=== PATIENT | male | born 1970 | race Caucasian/White ===

== ENCOUNTER 2020-03-08 20:52 | Observation (INO) ==
[2020-03-08 22:01] LABS: Basophils # (auto) 0.03 K/uL (0-0.2); Basophils % (auto) 0.3 %; Eosinophils # (auto) 0.26 K/uL (0-0.5); Eosinophils % (auto) 2.3 %; Hematocrit (blood only) 43.9 % (42-52); Hemoglobin 14.7 g/dL (14.0-18.0); Immature Granulocytes # (auto) 0.02 K/uL (0.00-0.02); Immature Granulocytes % (auto) 0.2 %; Lymphocytes # (auto) 4.05 K/uL (1.2-3.4); Lymphocytes % (auto) 36.4 %; Mean Corpuscular Hemoglobin 30.4 pg (25-34); Mean Corpuscular Hgb Conc 33.5 g/dL (32-36); Mean Corpuscular Volume 90.7 fL (80-100); Mean Platelet Volume 9.5 fL (7.4-10.4); Monocytes # (auto) 0.57 K/uL (0.11-0.59); Monocytes % (auto) 5.1 %; Neutrophils % (auto) 55.7 %; Platelet Count 243 K/uL (130-400); RDW Coefficient of Variation 12.8 % (11.5-14.5); RDW Standard Deviation 42.5 fL (36.4-46.3); Red Blood Count 4.84 M/uL (4.7-6.1); White Blood Count 11.13 K/uL (4.8-10.8)
[2020-03-08 22:19] LABS: Alanine Aminotransferase 28 U/L (12-78); Albumin Level 4.1 gm/dl (3.4-5.0); Aspartate Aminotransferase 21 U/L (15-37); BUN Creatinine Ratio 9.2 (10-20); Blood Urea Nitrogen 8 mg/dl (7-18); Calcium 9.2 mg/dl (8.5-10.1); Carbon Dioxide 31 mmol/L (21-32); Chloride 106 mmol/L (98-107); Creatinine Clr Calc Pharmacy 100.1 ml/min; Est GFR (African American) 115.8; Est GFR (Non-African American) 99.9; Glucose 79 mg/dl (70-99); Magnesium 2.1 mg/dl (1.8-2.4); Potassium 3.7 mmol/L (3.5-5.1); Sodium 141 mmol/L (136-145)
[2020-03-08 22:24] LABS: Albumin Globulin Ratio 1.1 (0.9-2); Alkaline Phosphatase 78 U/L (45-117); Bilirubin,Total 0.5 mg/dl (0.2-1); Globulin 3.6 gm/dl (2.5-4.0); NT Pro B Type Natriuretic Pept 57 pg/ml (0-450); Phosphorus 2.7 mg/dl (2.5-4.9); Total Protein 7.7 gm/dl (6.4-8.2); Troponin I < 0.015 ng/ml (0-0.045)
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
[2020-03-09] MEDS ORDERED: ONDANSETRON INJ 2 MG/ML 2 ML VIAL IV PRN (03:26)
[2020-03-09] MEDS ORDERED: ASPIRIN CHEW 324 MG PO STA (03:26)
[2020-03-09] MEDS ORDERED: NITROGLYCERIN SL 0.4 MG/TAB TAB SL PRN (03:26)
[2020-03-09] MEDS ORDERED: MoRPHine SULFATE 2 MG/ML CARP IV PRN (03:26)
[2020-03-09] MEDS ORDERED: ALUMINUM/MAGNESIUM SUSP 30 ML UDC PO PRN (03:26)
[2020-03-09] MEDS ORDERED: ACETAMINOPHEN 325 MG TAB PO PRN (03:26)
--- NOTE | 2020-03-09 03:32 | Billing Data ---
Date of Service March 09, 2020 Coding Level of Care Code 89970 OBS Care - Level 2
[2020-03-09 04:38] LABS: Basophils # (auto) 0.05 K/uL (0-0.2); Basophils % (auto) 0.5 %; Eosinophils # (auto) 0.39 K/uL (0-0.5); Hematocrit (blood only) 41.5 % (42-52); Hemoglobin 13.9 g/dL (14.0-18.0); Immature Granulocytes # (auto) 0.01 K/uL (0.00-0.02); Immature Granulocytes % (auto) 0.1 %; Lymphocytes # (auto) 4.23 K/uL (1.2-3.4); Lymphocytes % (auto) 43.4 %; Mean Corpuscular Hemoglobin 30.7 pg (25-34); Mean Corpuscular Hgb Conc 33.5 g/dL (32-36); Mean Corpuscular Volume 91.6 fL (80-100); Mean Platelet Volume 9.4 fL (7.4-10.4); Monocytes # (auto) 0.56 K/uL (0.11-0.59); Monocytes % (auto) 5.7 %; Neutrophils % (auto) 46.3 %; Platelet Count 229 K/uL (130-400); RDW Coefficient of Variation 12.9 % (11.5-14.5); RDW Standard Deviation 43.2 fL (36.4-46.3); Red Blood Count 4.53 M/uL (4.7-6.1); White Blood Count 9.74 K/uL (4.8-10.8)
[2020-03-09 05:02] LABS: BUN Creatinine Ratio 11.9 (10-20); Blood Urea Nitrogen 11 mg/dl (7-18); Calcium 8.6 mg/dl (8.5-10.1); Carbon Dioxide 30 mmol/L (21-32); Chloride 110 mmol/L (98-107); Creatinine Clr Calc Pharmacy 103.6 ml/min; Est GFR (African American) 116.4; Est GFR (Non-African American) 100.4; Glucose 87 mg/dl (70-99); Potassium 3.3 mmol/L (3.5-5.1); Sodium 144 mmol/L (136-145)
[2020-03-09 05:08] LABS: Chol HDL Ratio 5; Cholesterol 162 mg/dl (0-200); HDL Cholesterol 35 mg/dl; LDL Cholesterol Calculated 100 mg/dl; Triglycerides 135 mg/dl (0-150); Troponin I < 0.015 ng/ml (0-0.045); VLDL Cholesterol 27 mg/dl
[2020-03-09 06:05] LABS: Estimated Average Glucose 117 mg/dl; Hemoglobin A1C 5.7 % (4.5-5.6)
--- NOTE | 2020-03-09 07:23 | XRay Report ---
XR chest 1V portable CLINICAL HISTORY: Shortness of breath. Chest pain. COMPARISON STUDY: Chest CT March 05, 2013. FINDINGS: Chronic deformity of both shoulders and clavicles is again noted. There is no pneumothorax or pleural effusion. Mild cardiomegaly is noted without evidence for pulmonary edema. Minimal bibasil ar opacities are present. IMPRESSION: Minimal bibasilar opacities which favor atelectasis. An infectious process could appear similar. ACT 112: Negative or not required by law. Electronically signed by: Ludwin Omer M.D. 03/09/2020 7:21 AM
--- NOTE | 2020-03-09 08:38 | XCELERA ---
[id number]}___[id number]
[2020-03-09] MEDS ORDERED: POTASSIUM CHLORIDE 20 MEQ TABCR PO SCH (09:00)
[2020-03-09] MEDS ORDERED: BUPRENORPHINE/NALOXONE 8/2 MG TAB SL SCH (09:00)
[2020-03-09] MEDS ORDERED: NICOTINE 14 MG/24 HR PATCH TD SCH (09:00)
[2020-03-09] MEDS ORDERED: ENOXAPARIN INJ 40 MG/0.4 ML SYR SQ SCH (09:00)
[2020-03-09 12:23] LABS: Amphetamines+Metham, Urine Pos (Neg); Barbiturates, Urine Neg (Neg); Benzodiazepine, Urine Neg (Neg); Cocaine, Urine Neg (Neg); MDMA (Ecstacy), Urine Pos (Neg); Methadone, Urine Neg (Neg); Opiate, Urine Neg (Neg); Phencyclidine, Urine Neg (Neg)
--- NOTE | 2020-03-09 14:41 | XCELERA ---
[id number] \\[id number]_[id number]}___[id number]
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
--- NOTE | 2020-03-10 12:26 | Electrocardiogram Report ---
Test Reason : Blood Pressure : / mmHG Vent. Rate : 053 BPM Atrial Rate : 053 BPM P-R Int : 140 ms QRS Dur : 126 ms QT Int : 456 ms P-R-T Axes : 049 055 033 degrees QTc Int : 427 ms Sinus bradycardia Right bundle branch block Abnormal ECG When compared with ECG of 12-MAR-2013 06:13, Vent. rate has decreased BY 26 BPM Confirmed by Marcos Maxwell ([id number]) on 03/10/2020 12:26:11 PM Referred By: REFERRED SELF Confirmed By:Marcos Maxwell
[2020-03-12 13:50] LABS: Amphetamine Urine, Confirm 4500 ng/mL (<250); MDA negative; MDEA negative; MDMA (Ecstasy) Urine, Confirm negative; Marijuana Quant, GCMS Urine 802 ng/mL (<5); Methamphetamine, Ur Confirm >15000 ng/mL (<250)
== END 2020-03-09 15:53 | disposition home or self-care (01) ==
LOC: ED 20:52 → 2S 20:52 → SUATTDRO 03-09 01:51 → 2S 03-09 02:40

== ENCOUNTER 2023-01-16 16:36 | Inpatient (IN) ==
[2023-01-16] MEDS ORDERED: FUROSEMIDE 40 MG/4 ML VIAL IV ONE (17:30)
[2023-01-16] MEDS ORDERED: ALBUT/IPRATROP 3MG/0.5MG NEB 3 ML VIAL NEB STA (17:30)
[2023-01-16] MEDS ORDERED: NICOTINE 21 MG/24 HR TDSY TD STA ×2 (17:30→22:26)
[2023-01-16] MEDS ORDERED: CEFEPIME 2,000 MG/20 ML VIAL IV STA (17:38)
--- NOTE | 2023-01-16 17:38 | Emergency Department Note ---
Impression & Plan SOB (shortness of breath), CHF (congestive heart failure), Fluid overload, Carbon dioxide retention, Elevated troponin ED Provider Note NAME: ISHA CASTAÑEDA AGE: 53 SEX: M : 1970 ARRIVES VIA: Walk-In INFORMANT: [Patient][daughter] ED PROVIDER(S): [Jared Juarez MD] CHIEF COMPLAINT: Swelling, fluid buildup HISTORY OF PRESENT ILLNESS: The patient is a 53-year-old male who had at least 3 weeks of increasing edema of his lower legs and stomach. He feels full of fluid. He did see his doctor's office for this, he was given JANIS stockings and told to decrease the sodium in his diet and to keep his legs elevated. This has not helped. He is not currently on a diuretic. Patient does feel short of breath especially with exertion. He does not wear oxygen but is supposed to use CPAP at night. He has an inhaler to use because of a diagnosis of COPD. There has been no fever, the patient has noticed some redness to the lower extremities but he thinks that is from the swelling. He has not had vomiting or diarrhea. PMHx/PSHx: See Below SOCIAL HISTORY: See Below. PHYSICAL EXAM: GENERAL: Patient is in no acute distress. HEENT: No acute trauma, normocephalic atraumatic, mucous membranes moist, no nasal congestion. NECK: No stridor, no adenopathy, no meningismus, trachea is midline. LUNGS: Diminished breath sounds with some wheezes and crackles bilaterally. No respiratory distress. HEART: Without murmurs gallops or rubs, regular rate and rhythm. Heart tones are distant. ABDOMEN: Soft, nontender, bowel sounds positive, no peritonitis. EXTREMITIES: No cyanosis. Marked bilateral pedal edema with some lower extremity erythema from the knees to the feet. No drainage. NEUROLOGIC: Oriented x 3, no acute motor or sensory deficits, no focal weakness. SKIN: No jaundice, no diaphoresis. DIFFERENTIAL DIAGNOSIS: CHF, pedal edema, fluid overload, renal failure, liver failure, electrolyte imbalance, DVT, among others. EMERGENCY DEPARTMENT COURSE/PROCEDURES: Prior/Outside records reviewed: Previous family practice note. ECG per my interpretation: Indication was shortness of breath. The ECG shows a normal sinus rhythm with a rate of 75. There is a right bundle branch block seen. There is some nonspecific ST change. There is no ST elevation, no PVCs. The QTc is 339. Continuous Cardiac Monitoring per my interpretation: An order was placed for continuous cardiac monitoring. The monitor shows a rate of 75 with normal sinus rhythm. Critical Care Note: I have personally spent 51 minutes of critical care time in the direct management of this patient. This includes bedside care, interpretation of diagnostic studies, and testing, discussion with consultants, patient, and family members, and other required patient management activities. This 51 minutes is in excess of all separately billable procedures. MEDICAL DECISION MAKING: There is no leukocytosis or concerning anemia. There is a normal platelet count. VBG does show a mild acidosis with some CO2 retention, the CO2 was 81. CO2 was elevated on renal panel testing. No renal failure. Lactic acid level was not elevated making sepsis less likely. No concerning liver enzyme elevation. BNP was not not elevated. The patient appeared to be in a euthyroid state. ECG showed a normal sinus rhythm, there was no obvious ischemia. Ca rdiac enzyme testing x1 was slightly elevated. This elevation may be secondary to cardiac injury or potentially just mismatch from his dyspnea. Urinalysis did not show findings of infection. Respiratory bio fire was completely negative. Chest film per my review shows some CHF, no pneumonia. Bilateral lower extremity ultrasound did not show findings of DVT. On exam, the patient was obviously fluid overloaded. He had some wheezing and crackles on lung exam. He had significant bilateral pedal edema. The patient was given nitroglycerin paste, IV Lasix. He received IV cefepime as empiric antibiotic coverage. He received IV Phenergan for nausea, IV Zofran for nausea. He was given a nicotine patch. He was given his typical dose of buprenorphine sublingual. He was given a DuoNeb. He received IV Benadryl, this was his request to prevent any type of medication reaction. The patient has been maintaining his airway. I did decide to place him on BiPAP to help potentially with his CO2 retention. The nursing staff was advised to keep his O2 saturation around 90%. The patient is fluid overloaded and I believe this is responsible for his shortness of breath. He will require a hospital stay, diuresis, BiPAP therapy. I did speak with the patient and case management, the on-call hospitalist was consulted. DISPOSITION: Patient presentation and findings warrant a hospital stay. Past Med/Surg History Medical History Anxiety BPH (benign prostatic hyperplasia) Chronic obstructive pulmonary disease inh prn History of anesthesia problem "feels like his head is going to blow up after anesthesia" History of dyspnea History of inguinal hernia Lt-no repair done History of knee problem Pt "is bow legged" Hx of hypotension Hx of migraines Opioid abuse hx Sleep apnea had cpap-"not able to use, so they took it back" Surgical History Eustachian tube obstruction H/O oral surgery History of back surgery History of esophagogastroduodenoscopy (EGD) History of repair of congenital cleft palate Hx of colonoscopy Hx of knee surgery Hx of myringotomy S/P tonsillectomy Family History Mother Breast cancer Father Myocardial infarction Valvular heart disease Denies family history of Ovarian cancer Prostate cancer Colorectal cancer Social History Smoking Status: Current every day smoker Tobacco Type: Cigarettes Age Started Using Tobacco: 9; packs per day: 1; Cigarettes Per Day: 20-25; Second Hand Exposure: No; Do You Dip or Chew Tobacco: No; Hx Alcohol Use: Yes (quit-25 years ago) Hx Substance Use: Yes Non-Prescribed Medications: Marijuana Last Used Substance Other:: marijuana-04/12/22, uses daily; hx opioid use quit 10-15 years ago Substance Use Type Other:: 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 Preferred Language: [place] Communication Ability: Effective Visual Impairment: No Limitations Hearing Ability: Hard of Hearing Ball Points Inspector Required: No Beliefs That Will Affect Care: None marital status: Single Current Living Situation: Alone Current Living Situation Comment: DAUGHTER 19Y/O, 2Y/O GRANDSON current occupational status: disabled How many Children do You have: 3 Feels Safe at Home: Yes Childhood Exposure to Second-Hand Smoke: Yes Diet: regular caffeine: Yes during the past year weight has: remained stable Dental Care, Regularly: No Physical Activity Frequency: Does not Exercise Seatbelt Use: never Sunscreen Use: No Assistive Devices: Glasses Allergies Allergies Allergy/AdvReac Type Severity Reaction Status Date / Time moxifloxacin Allergy Intermediate RASH Verified 01/16/23 18:23 Penicillins Allergy Unknown CAN'T Verified 01/16/23 18:23 REMEMBER Home Meds Home Medications Medication Instructions Recorded Confirmed buprenorphine 8 mg-naloxone 2 mg 1 film sublingual BID 03/15/20 01/16/23 sublingual film (Suboxone) albuterol sulfate 90 mcg/actuation 1 - 2 puff inhalation UD PRN 04/12/22 01/16/23 aerosol inhaler (Ventolin HFA) shortness of breath or wheezing acetaminophen 500 mg tablet 500 - 1,000 mg PO DIRECTED PRN 01/16/23 01/16/23 (Tylenol Extra Strength) Pain Previous Rx's Medication Instructions Recorded rosuvastatin 5 mg tablet 5 mg PO HS #90 tabs 10/07/22 gabapentin 300 mg capsule 300 mg PO HS #30 caps 10/31/22 Results & Data (ED) Vital Signs Vital Signs - 24 hr 01/16/23 16:45 01/16/23 17:11 01/16/23 17:28 Temperature 36.9 C Temperature Source Temporal Artery Scan Pulse Rate 71 73 75 Pulse Rate [Right Finger] Pulse Rhythm Regular Pulse Rhythm [Right Finger] Pulse Strength Normal Pulse Strength [Right Finger] Respiratory Rate 24 16 Respiratory Effort / Characteristics Non-Labored Respiratory Depth Normal Respiratory Pattern Regular Blood Pressure 156/94 H Blood Pressure [Right Arm] Blood Pressure Mean 114 Blood Pressure Mean [Right Arm] Blood Pressure Position Sitting Blood Pressure Position [Right Arm] Pulse Oximetry 90 94 Oxygen Delivery Method Room Air Nasal Cannula Oxygen Flow Rate 4 Sepsis Recent Fever Within 48 Hours No Sepsis New/Unexplained Change in Mental Status No Sepsis Action Taken by Nursing No Action Required 01/16/23 20:00 Temperature 36.9 C Temperature Source Oral Pulse Rate Pulse Rate [Right Finger] 75 Pulse Rhythm Pulse Rhythm [Right Finger] Regular Pulse Strength Pulse Strength [Right Finger] Normal Respiratory Rate 20 Respiratory Effort / Characteristics Non-Labored Spontaneous Respiratory Depth Normal Respiratory Pattern Regular Blood Pressure Blood Pressure [Right Arm] 142/78 H Blood Pressure Mean Blood Pressure Mean [Right Arm] 99 Blood Pressure Position Blood Pressure Position [Right Arm] Lying Pulse Oximetry 94 Oxygen Delivery Method Nasal Cannula Oxygen Flow Rate 4 Sepsis Recent Fever Within 48 Hours Sepsis New/Unexplained Change in Mental Status Sepsis Action Taken by Longterm Medications Current Medication List: was personally reviewed by me Laboratory Data Attestation: I reviewed the patient's lab results. 01/16/23 16:56 01/16/23 16:56 Lab Results 01/16/23 01/16/23 01/16/23 Range/Units 16:56 16:56 16:56 WBC 10.50 (4.8-10.8) K/ul RBC 4.54 L (4.70-6.10) M/uL Hgb 13.9 L (14.0-18.0) g/dl Hct 42.7 (42.0-52.0) % MCV 94.1 (80.0-100.0) fL MCH 30.6 (25.0-34.0) pg MCHC 32.6 (32.0-36.0) g/dL RDW Std Deviation 43.5 (36.4-46.3) fL RDW Coeff of Akash 12.6 (11.5-14.5) % Plt Count 223 (130-400) K/uL MPV 9.9 (9.4-12.4) fL Immature Gran % (Auto) 0.4 % Neut % (Auto) 63.3 % Lymph % (Auto) 26.6 % [place] % (Auto) 6.5 % Eos % (Auto) 2.6 % Baso % (Auto) 0.6 % Neut # (Auto) 6.66 H (1.40-6.50) K/uL Lymph # (Auto) 2.79 (1.2-3.4) K/uL [place] # (Auto) 0.68 H (0.11-0.59) K/uL Eos # (Auto) 0.27 (0-0.50) K/uL Baso # (Auto) 0.06 (0-0.2) K/uL Immature Gran # (Auto) 0.04 (0.01-0.20) K/uL VBG pH (7.36-7.41) VBG pCO2 (38-50) mmHg VBG pO2 mmHg VBG HCO3 mmol/L VBG O2 Saturation % VBG Base Excess mEq/L Sodium 141 (136-145) mmol/L Potassium 3.6 (3.5-5.1) mmol/L Chloride 100 (98-107) mmol/L Carbon Dioxide 37 H (21-32) mmol/L Anion Gap 4 (3-11) BUN 9 (6-23) mg/dl Creatinine 0.78 (0.6-1.4) mg/dl Est Cr Clr Drug Dosing 104.0 ml/min Est GFR ( Amer) 120.3 ml/min Est GFR (Non-Af Amer) 103.8 ml/min BUN/Creatinine Ratio 11.5 (10-20) Glucose 111 H (70-99(Fasting)) mg/dl Lactate (0.4-2.0) mmol/L Calcium 9.6 (8.6-10.3) mg/dl Magnesium 1.8 (1.7-2.4) mg/dl Total Bilirubin 0.7 (0.2-1.0) mg/dl AST 26 (13-39) U/L ALT 28 (7-52) U/L Alkaline Phosphatase 79 (34-104) U/L Troponin I High Sens 24.0 H (0-20) pg/ml B-Natriuretic Peptide 97 (0-100) pg/ml Total Protein 7.6 (6.0-8.3) gm/dl Albumin 4.3 (3.4-5.0) gm/dl Globulin 3.3 (2.5-4.0) gm/dl Albumin/Globulin Ratio 1.3 (0.9-2) TSH (0.300-4.500) uIu/ml Urine Color Urine Appearance (Clear) Urine pH (4.5-7.5) Ur Specific [place] (1.000-1.030) Urine Protein (Negative) Urine Glucose (UA) (Negative) Urine Ketones (Negative) Urine Blood (Negative) Urine Nitrite (Negative) Urine Bilirubin (Negative) Urine Urobilinogen (Negative) Ur Leukocyte Esterase (Negative) Urine WBC (Auto) (0-5) /hpf Urine RBC (Auto) (0-4) /hpf U Hyaline Cast (Auto) (0-5) /lpf U Epithel Cells (Auto) (0-5) /lpf Urine Bacteria (Auto) (Negative) Adenovirus (PCR) (NotDetected) B. pertussis DNA (PCR) (NotDetected) B.parapertussis DNA PCR (NotDetected) C. pneumoniae DNA (PCR) (NotDetected) Coronavirus OC43 (PCR) (NotDetected) Coronavirus HKU1 (PCR) (NotDetected) Coronavirus 229E (PCR) (NotDetected) SARS-CoV-2 (PCR) (NotDetected) Coronavirus NL63 (PCR) (NotDetected) Human Metapneumovir PCR (NotDetected) Influenza Type A (PCR) (NotDetected) Influenza Type B (PCR) (NotDetected) M. pneumoniae (PCR) (NotDetected) Parainfluenza 1 (PCR) (NotDetected) Parainfluenza 2 (PCR) (NotDetected) Parainfluenza 3 (PCR) (NotDetected) Parainfluenza 4 (PCR) (NotDetected) RSV (PCR) (NotDetected) Entero/Rhino (PCR) (NotDetected) 01/16/23 01/16/23 01/16/23 Range/Units 16:56 16:56 18:16 WBC (4.8-10.8) K/ul RBC (4.70-6.10) M/uL Hgb (14.0-18.0) g/dl Hct (42.0-52.0) % MCV (80.0-100.0) fL MCH (25.0-34.0) pg MCHC (32.0-36.0) g/dL RDW Std Deviation (36.4-46.3) fL RDW Coeff of Akash (11.5-14.5) % Plt Count (130-400) K/uL MPV (9.4-12.4) fL Immature Gran % (Auto) % Neut % (Auto) % Lymph % (Auto) % [place] % (Auto) % Eos % (Auto) % Baso % (Auto) % Neut # (Auto) (1.40-6.50) K/uL Lymph # (Auto) (1.2-3.4) K/uL [place] # (Auto) (0.11-0.59) K/uL Eos # (Auto) (0-0.50) K/uL Baso # (Auto) (0-0.2) K/uL Immature Gran # (Auto) (0.01-0.20) K/uL VBG pH 7.31 L (7.36-7.41) VBG pCO2 81 H (38-50) mmHg VBG pO2 32 mmHg VBG HCO3 41 mmol/L VBG O2 Saturation < 60.0 % VBG Base Excess 11.0 mEq/L Sodium (136-145) mmol/L Potassium (3.5-5.1) mmol/L Chloride (98-107) mmol/L Carbon Dioxide (21-32) mmol/L Anion Gap (3-11) BUN (6-23) mg/dl Creatinine (0.6-1.4) mg/dl Est Cr Clr Drug Dosing ml/min Est GFR ( Amer) ml/min Est GFR (Non-Af Amer) ml/min BUN/Creatinine Ratio (10-20) Glucose (70-99(Fasting)) mg/dl Lactate (0.4-2.0) mmol/L Calcium (8.6-10.3) mg/dl Magnesium (1.7-2.4) mg/dl Total Bilirubin (0.2-1.0) mg/dl AST (13-39) U/L ALT (7-52) U/L Alkaline Phosphatase (34-104) U/L Troponin I High Sens (0-20) pg/ml B-Natriuretic Peptide (0-100) pg/ml Total Protein (6.0-8.3) gm/dl Albumin (3.4-5.0) gm/dl Globulin (2.5-4.0) gm/dl Albumin/Globulin Ratio (0.9-2) TSH 2.821 (0.300-4.500) uIu/ml Urine Color Urine Appearance (Clear) Urine pH (4.5-7.5) Ur Specific [place] (1.000-1.030) Urine Protein (Negative) Urine Glucose (UA) (Negative) Urine Ketones (Negative) Urine Blood (Negative) Urine Nitrite (Negative) Urine Bilirubin (Negative) Urine Urobilinogen (Negative) Ur Leukocyte Esterase (Negative) Urine WBC (Auto) (0-5) /hpf Urine RBC (Auto) (0-4) /hpf U Hyaline Cast (Auto) (0-5) /lpf U Epithel Cells (Auto) (0-5) /lpf Urine Bacteria (Auto) (Negative) Adenovirus (PCR) Not Detected (NotDetected) B. pertussis DNA (PCR) Not Detected (NotDetected) B.parapertussis DNA PCR Not Detected (NotDetected) C. pneumoniae DNA (PCR) Not Detected (NotDetected) Coronavirus OC43 (PCR) Not Detected (NotDetected) Coronavirus HKU1 (PCR) Not Detected (NotDetected) Coronavirus 229E (PCR) Not Detected (NotDetected) SARS-CoV-2 (PCR) Not Detected (NotDetected) Coronavirus NL63 (PCR) Not Detected (NotDetected) Human Metapneumovir PCR Not Detected (NotDetected) Influenza Type A (PCR) Not Detected (NotDetected) Influenza Type B (PCR) Not Detected (NotDetected) M. pneumoniae (PCR) Not Detected (NotDetected) Parainfluenza 1 (PCR) Not Detected (NotDetected) Parainfluenza 2 (PCR) Not Detected (NotDetected) Parainfluenza 3 (PCR) Not Detected (NotDetected) Parainfluenza 4 (PCR) Not Detected (NotDetected) RSV (PCR) Not Detected (NotDetected) Entero/Rhino (PCR) Not Detected (NotDetected) 01/16/23 01/16/23 Range/Units 18:16 18:49 WBC (4.8-10.8) K/ul RBC (4.70-6.10) M/uL Hgb (14.0-18.0) g/dl Hct (42.0-52.0) % MCV (80.0-100.0) fL MCH (25.0-34.0) pg MCHC (32.0-36.0) g/dL RDW Std Deviation (36.4-46.3) fL RDW Coeff of Akash (11.5-14.5) % Plt Count (130-400) K/uL MPV (9.4-12.4) fL Immature Gran % (Auto) % Neut % (Auto) % Lymph % (Auto) % [place] % (Auto) % Eos % (Auto) % Baso % (Auto) % Neut # (Auto) (1.40-6.50) K/uL Lymph # (Auto) (1.2-3.4) K/uL [place] # (Auto) (0.11-0.59) K/uL Eos # (Auto) (0-0.50) K/uL Baso # (Auto) (0-0.2) K/uL Immature Gran # (Auto) (0.01-0.20) K/uL VBG pH (7.36-7.41) VBG pCO2 (38-50) mmHg VBG pO2 mmHg VBG HCO3 mmol/L VBG O2 Saturation % VBG Base Excess mEq/L Sodium (136-145) mmol/L Potassium (3.5-5.1) mmol/L Chloride (98-107) mmol/L Carbon Dioxide (21-32) mmol/L Anion Gap (3-11) BUN (6-23) mg/dl Creatinine (0.6-1.4) mg/dl Est Cr Clr Drug Dosing ml/min Est GFR ( Amer) ml/min Est GFR (Non-Af Amer) ml/min BUN/Creatinine Ratio (10-20) Glucose (70-99(Fasting)) mg/dl Lactate 1.1 (0.4-2.0) mmol/L Calcium (8.6-10.3) mg/dl Magnesium (1.7-2.4) mg/dl Total Bilirubin (0.2-1.0) mg/dl AST (13-39) U/L ALT (7-52) U/L Alkaline Phosphatase (34-104) U/L Troponin I High Sens (0-20) pg/ml B-Natriuretic Peptide (0-100) pg/ml Total Protein (6.0-8.3) gm/dl Albumin (3.4-5.0) gm/dl Globulin (2.5-4.0) gm/dl Albumin/Globulin Ratio (0.9-2) TSH (0.300-4.500) uIu/ml Urine Color Yellow Urine Appearance Clear (Clear) Urine pH 5.5 (4.5-7.5) Ur Specific [place] 1.006 (1.000-1.030) Urine Protein Negative (Negative) Urine Glucose (UA) Negative (Negative) Urine Ketones Negative (Negative) Urine Blood Trace H (Negative) Urine Nitrite Negative (Negative) Urine Bilirubin Negative (Negative) Urine Urobilinogen Negative (Negative) Ur Leukocyte Esterase Negative (Negative) Urine WBC (Auto) 0 (0-5) /hpf Urine RBC (Auto) 0-4 (0-4) /hpf U Hyaline Cast (Auto) 1-5 (0-5) /lpf U Epithel Cells (Auto) 0-5 (0-5) /lpf Urine Bacteria (Auto) Negative (Negative) Adenovirus (PCR) (NotDetected) B. pertussis DNA (PCR) (NotDetected) B.parapertussis DNA PCR (NotDetected) C. pneumoniae DNA (PCR) (NotDetected) Coronavirus OC43 (PCR) (NotDetected) Coronavirus HKU1 (PCR) (NotDetected) Coronavirus 229E (PCR) (NotDetected) SARS-CoV-2 (PCR) (NotDetected) Coronavirus NL63 (PCR) (NotDetected) Human Metapneumovir PCR (NotDetected) Influenza Type A (PCR) (NotDetected) Influenza Type B (PCR) (NotDetected) M. pneumoniae (PCR) (NotDetected) Parainfluenza 1 (PCR) (NotDetected) Parainfluenza 2 (PCR) (NotDetected) Parainfluenza 3 (PCR) (NotDetected) Parainfluenza 4 (PCR) (NotDetected) RSV (PCR) (NotDetected) Entero/Rhino (PCR) (NotDetected) Administered Medications Discontinued Medications Albuterol (Albut/Ipratrop 3mg/0.5mg Neb 3 Ml Vial) 3 ml NEB NOW STA; Protocol Stop: 01/16/23 17:31 Last Admin: 01/16/23 17:37 Dose: 3 ml Documented By: ROSALIA Buprenorphine/Naloxone (Buprenorphine/Naloxone 8/2 Mg Tab) 1 tab SL NOW STA Stop: 01/16/23 18:27 Last Admin: 01/16/23 18:37 Dose: 1 tab Documented By: GEMMA Diphenhydramine HCl (Diphenhydramine 50 Mg/Ml Vial) 12.5 mg IV NOW STA Stop: 01/16/23 18:36 Last Admin: 01/16/23 18:51 Dose: 12.5 mg Documented By: Furosemide (Furosemide 40 Mg/4 Ml Vial) 40 mg IV ONE ONE Stop: 01/16/23 17:31 Last Admin: 08/03/23 17:37 Dose: 40 mg Documented By: ROSALIA Cefepime HCl (Maxipime) 2,000 mg in 20 mls @ 5 mls/min IV NOW STA; Protocol Stop: 01/16/23 17:41 Last Admin: 01/16/23 18:21 Dose: 5 mls/min Documented By: Promethazine HCl (Phenergan) 6.25 mg in 50.25 mls @ 201 mls/hr IV NOW STA Stop: 01/16/23 18:40 Last Infusion: 01/16/23 18:54 Dose: 0 mls/hr Documented By: Admin: 01/16/23 18:37 Dose: 201 mls/hr Documented By: GEMMA Nicotine (Nicotine 21 Mg/24 Hr Tdsy) 21 mg TD NOW STA Stop: 01/16/23 17:31 Last Admin: 01/16/23 17:37 Dose: 21 mg Documented By: ROSALIA Nitroglycerin (Nitroglycerin 2% Ointment 30gm Tube) 1 inch EXT NOW STA Stop: 01/16/23 17:48 Last Admin: 01/16/23 17:54 Dose: 1 inch Documented By: ROSALIA Ondansetron HCl (Ondansetron Inj 2 Mg/Ml 2 Ml Vial) 4 mg IV NOW STA Stop: 01/16/23 18:27 Last Admin: 01/16/23 18:37 Dose: 4 mg Documented By: GEMMA Imaging Data Radiologist's Impression: Chest X-Ray 01/16/23 17:28 SINGLE VIEW CHEST CLINICAL HISTORY: Dyspnea FINDINGS: An AP, portable, upright chest radiograph is compared to study dated 03/08/2020. The heart is enlarged. The pulmonary vasculature is noncongested. Scarring/atelectasis is noted at the lung bases. No airspace consolidation or large pleural effusion is identified. No pneumothorax is seen. The skeletal stru ctures are osteopenic. There is chronic posttraumatic deformity of the left clavicle. IMPRESSION: Cardiomegaly with no acute cardiopulmonary abnormality identified. ACT 112: Negative or not required by law. Electronically signed by: Jared Anderson M.D. 01/16/2023 5:49 PM Venous Doppler Study 01/16/23 17:30 Exam(s): US VENOUS BILATERAL LOWER EXTREMITIES EXAM: US Duplex Bilateral Lower Extremities Veins CLINICAL HISTORY: Edema. TECHNIQUE: Real-time duplex ultrasound scan of the bilateral lower extremity veins integrating B-mode two-dimensional vascular structure, Doppler spectral analysis, color flow Doppler imaging and compression. COMPARISON: No relevant prior studies available. FINDINGS: Right deep veins: Unremarkable. No DVT in the right common femoral, femoral, proximal deep femoral or popliteal veins. The veins demonstrate normal color flow, are normally compressible, with normal phasic flow and/or augmentation response. The interrogated calf veins are patent. Right superficial veins: Unremarkable. No thrombus in the saphenofemoral junction. Left deep veins: Unremarkable. No DVT in the left common femoral, femoral, proximal deep femoral or popliteal veins. The veins demonstrate normal color flow, are normally compressible, with normal phasic flow and/or augmentation response. The interrogated calf veins are patent. Left superficial veins: Unremarkable. No thrombus in the saphenofemoral junction. Soft tissues: Subcutaneous edema is noted involving the bilateral calves. No loculated fluid collection. No popliteal cyst. IMPRESSION: No evidence for deep vein thrombosis involving the bilateral lower extremities. Electronically signed by: Terry Hough MD 01/16/23 19:57 PM Discharge Plan Visit Data Chief Complaint: Swelling/Edema to Extremity Stated Complaint: SWELLING IN WHOLE BODY ED Provider: Jared Juarez Discharge Problem: SOB (shortness of breath), CHF (congestive heart failure), Fluid overload, Carbon dioxide retention, Elevated troponin Patient Disposition: Admitted As Inpatient Condition: Serious Forms Stand Alone Forms: My [facility] [employer] Prescriptions Prescriptions: No Action gabapentin 300 mg capsule 300 mg PO HS Qty: 30 5RF rosuvastatin 5 mg tablet 5 mg PO HS Qty: 90 1RF buprenorphine-naloxone [Suboxone] 8-2 mg film 1 film sublingual BID albuterol sulfate [Ventolin HFA] 90 mcg/actuation HFA aerosol inhaler 1 - 2 puff inhalation UD PRN (Reason: shortness of breath or wheezing) Rx Instructions: 1-2 INH 4-6 PRN; acetaminophen [Tylenol Extra Strength] 500 mg Tablet 500 - 1,000 mg PO DIRECTED PRN (Reason: Pain) Referrals Referrals: Jose Burk III, CRNP [Primary Care Provider] -
[2023-01-16] MEDS ORDERED: NITROGLYCERIN 2% OINTMENT 30GM TUBE EXT STA (17:47)
--- NOTE | 2023-01-16 17:50 | XRay Report ---
SINGLE VIEW CHEST CLINICAL HISTORY: Dyspnea FINDINGS: An AP, portable, upright chest radiograph is compared to study dated 03/08/2020. The heart i s enlarged. The pulmonary vasculature is noncongested. Scarring/atelectasis is noted at the lung base s. No airspace consolidation or large pleural effusion is identified. No pneumothorax is seen. The sk eletal structures are osteopenic. There is chronic posttraumatic deformity of the left clavicle. IMPRESSION: Cardiomegaly with no acute cardiopulmonary abnormality identified. ACT 112: Negative or not required by law. Electronically signed by: Jared Anderson M.D. 01/16/2023 5:49 PM
[2023-01-16 17:53] LABS: Basophils # (auto) 0.06 K/uL (0-0.2); Basophils % (auto) 0.6 %; Eosinophils # (auto) 0.27 K/uL (0-0.50); Eosinophils % (auto) 2.6 %; Hematocrit (blood only) 42.7 % (42.0-52.0); Hemoglobin 13.9 g/dl (14.0-18.0); Immature Granulocytes # (auto) 0.04 K/uL (0.01-0.20); Immature Granulocytes % (auto) 0.4 %; Lymphocytes # (auto) 2.79 K/uL (1.2-3.4); Lymphocytes % (auto) 26.6 %; Mean Corpuscular Hemoglobin 30.6 pg (25.0-34.0); Mean Corpuscular Hgb Conc 32.6 g/dL (32.0-36.0); Mean Corpuscular Volume 94.1 fL (80.0-100.0); Mean Platelet Volume 9.9 fL (9.4-12.4); Monocytes # (auto) 0.68 K/uL (0.11-0.59); Monocytes % (auto) 6.5 %; Neutrophils # (auto) 6.66 K/uL (1.40-6.50); Neutrophils % (auto) 63.3 %; Platelet Count 223 K/uL (130-400); RDW Coefficient of Variation 12.6 % (11.5-14.5); RDW Standard Deviation 43.5 fL (36.4-46.3); Red Blood Count 4.54 M/uL (4.70-6.10)
[2023-01-16 18:10] LABS: Albumin Globulin Ratio 1.3 (0.9-2); Albumin Level 4.3 gm/dl (3.4-5.0); BUN Creatinine Ratio 11.5 (10-20); Bilirubin,Total 0.7 mg/dl (0.2-1.0); Calcium 9.6 mg/dl (8.6-10.3); Est GFR (African American) 120.3 ml/min; Est GFR (Non-African American) 103.8 ml/min; Globulin 3.3 gm/dl (2.5-4.0); Magnesium 1.8 mg/dl (1.7-2.4); Potassium 3.6 mmol/L (3.5-5.1); Total Protein 7.6 gm/dl (6.0-8.3)
[2023-01-16 18:25] LABS: HCO3 VBG 41 mmol/L; Oxygen Saturation VBG < 60.0 %; PCO2 VBG 81 mmHg (38-50); PO2 VBG 32 mmHg; pH VBG 7.31 (7.36-7.41)
[2023-01-16] MEDS ORDERED: PROMETHAZINE 6.25 MG/50.25 ML BAG IV STA (18:26)
[2023-01-16] MEDS ORDERED: ONDANSETRON INJ 2 MG/ML 2 ML VIAL IV STA (18:26)
[2023-01-16] MEDS ORDERED: BUPRENORPHINE/NALOXONE 8/2 MG TAB SL STA (18:26)
[2023-01-16] MEDS ORDERED: diphenhydrAMINE 50 MG/ML VIAL IV STA (18:35)
[2023-01-16 18:46] LABS: Adenovirus PCR Not Detected (NotDetected); Bordetella parapertussis PCR Not Detected (NotDetected); Bordetella pertussis PCR Not Detected (NotDetected); Chlamydia pneumoniae PCR Not Detected (NotDetected); Coronavirus 229E PCR Not Detected (NotDetected); Coronavirus CoV-2 (COVID19)PCR Not Detected (NotDetected); Coronavirus HKU1 PCR Not Detected (NotDetected); Coronavirus NL63 PCR Not Detected (NotDetected); Coronavirus OC43PCR Not Detected (NotDetected); Human Metapneumovirus PCR Not Detected (NotDetected); Influenza A PCR Not Detected (NotDetected); Influenza B PCR Not Detected (NotDetected); Mycoplasma pneumoniae PCR Not Detected (NotDetected); Parainfluenza Virus 1 PCR Not Detected (NotDetected); Parainfluenza Virus 2 PCR Not Detected (NotDetected); Parainfluenza Virus 3 PCR Not Detected (NotDetected); Parainfluenza Virus 4 PCR Not Detected (NotDetected); Respiratory Syncytial VirusPCR Not Detected (NotDetected); Rhinovirus/Enterovirus PCR Not Detected (NotDetected)
[2023-01-16 19:05] LABS: Appearance Urine Clear (Clear); Bacteria Urine Automated Negative (Negative); Bilirubin Urine Negative (Negative); Blood Urine Trace (Negative); Color Urine Yellow; Epithelial Cell Urine Auto 0-5 /lpf (0-5); Glucose Urine UA Negative (Negative); Ketones Urine Negative (Negative); Leukocyte Esterase Urine Negative (Negative); Nitrite Urine Negative (Negative); Protein Urine Negative (Negative); RBC Urine Automated 0-4 /hpf (0-4); Specific Gravity Urine 1.006 (1.000-1.030); Urobilinogen Urine Negative (Negative); WBC Urine Automated 0 /hpf (0-5); pH Urine 5.5 (4.5-7.5)
--- NOTE | 2023-01-16 19:58 | Ultrasound Report ---
Exam(s): US VENOUS BILATERAL LOWER EXTREMITIES EXAM: US Duplex Bilateral Lower Extremities Veins CLINICAL HISTORY: Edema. TECHNIQUE: Real-time duplex ultrasound scan of the bilateral lower extremity veins integrating B-mode two-dimensional vascular structure, Doppler spectral analysis, color flow Doppler imaging and compression. COMPARISON: No relevant prior studies available. FINDINGS: Right deep veins: Unremarkable. No DVT in the right common femoral, femoral, proximal deep femoral or popliteal veins. The veins demonstrate normal color flow, are normally compressible, with normal phasic flow and/or augmentation response. The interrogated calf veins are patent. Right superficial veins: Unremarkable. No thrombus in the saphenofemoral junction. Left deep veins: Unremarkable. No DVT in the left common femoral, femoral, proximal deep femoral or popliteal veins. The veins demonstrate normal color flow, are normally compressible, with normal phasic flow and/or augmentation response. The interrogated calf veins are patent. Left superficial veins: Unremarkable. No thrombus in the saphenofemoral junction. Soft tissues: Subcutaneous edema is noted involving the bilateral calves. No loculated fluid collection. No popliteal cyst. IMPRESSION: No evidence for deep vein thrombosis involving the bilateral lower extremities. Electronically signed by: Terry Hough MD 01/16/23 19:57 PM
--- NOTE | 2023-01-16 20:30 | History & Physical Report ---
Date of Service January 16, 2023 Assessment & Plan (1) Acute respiratory failure with hypoxia and hypercapnia: (2) Current smoker: (3) Required emergency intubation: (4) Fluid overload: (5) Elevated troponin: (6) Cleft lip and palate: (7) Hyperlipidemia: (8) Hyperglycemia: (9) BPH w urinary obs/LUTS: Plan Acute respiratory failure with hypoxia and hypercapnia/required emergent intubation/CHF exacerbation/pneumonia- Admitted to the ICU Furosemide 40 mg IV twice daily Duonebs every 4 hours while awake and every 2 hours when necessary. 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 for ICU management Elevated troponin/CHF exacerbation- Troponin 24.0 on admission Check serial troponins, cardiac rhythm monitoring, and complete echocardiogram Nitropaste 1 inch to anterior chest wall every 6 hours Hyperlipidemia- Holding rosuvastatin Chronic pain syndrome- Holding Suboxone sublingually twice daily History of Present Illness Chief Complaint: The patient presents to the emergency department with complaint of 3 to 4 weeks of worsening generalized edema in his legs, trunk and arms despite conservative treatment with JANIS stockings, sodium restriction and keeping legs elevated as recommended by his doctors office. Primary Care Provider: Jose Burk III, ROSE MARIE The patient is a 53-year-old male with a past medical history including insomnia, cleft lip and palate, hyperlipidemia, hyperglycemia, urinary incontinence, chronic pain syndrome, BPH with LUTS and ED. The patient presents to the work emergency department with worsening generalized edema as noted above. While in the emergency department, the patient became more lethargic and ABG at that time showed significant respiratory acidosis for which she was initially placed on BiPAP, and admitted to stepdown unit with plans for follow- up ABG in 1 hour. Patient continued be more lethargic, ABG at that time showed worsening acute respiratory acidosis, and patient was then transferred to the ICU, and intubated for further treatment. Allergies Allergy/AdvReac Type Severity Reaction Status Date / Time moxifloxacin Allergy Intermediate RASH Verified 01/16/23 18:23 Penicillins Allergy Unknown CAN'T Verified 01/16/23 18:23 REMEMBER Home Medications Medication Instructions Recorded Confirmed Type buprenorphine 8 mg-naloxone 2 mg 1 film sublingual BID 09/30/20 08/03/23 History sublingual film (Suboxone) albuterol sulfate 90 mcg/actuation 1 - 2 puff inhalation UD PRN 04/12/22 01/16/23 History aerosol inhaler (Ventolin HFA) shortness of breath or wheezing rosuvastatin 5 mg tablet 5 mg PO HS #90 tabs 10/07/22 01/16/23 Rx gabapentin 300 mg capsule 300 mg PO HS #30 caps 10/31/22 01/16/23 Rx acetaminophen 500 mg tablet 500 - 1,000 mg PO DIRECTED PRN 01/16/23 01/16/23 History (Tylenol Extra Strength) Pain Past Med/Surg History Medical History Anxiety BPH (benign prostatic hyperplasia) Chronic obstructive pulmonary disease inh prn History of anesthesia problem "feels like his head is going to blow up after anesthesia" History of dyspnea History of inguinal hernia Lt-no repair done History of knee problem Pt "is bow legged" Hx of hypotension Hx of migraines Opioid abuse hx Sleep apnea had cpap-"not able to use, so they took it back" Surgical History Eustachian tube obstruction H/O oral surgery teeth extracted History of back surgery History of esophagogastroduodenoscopy (EGD) History of repair of congenital cleft palate Hx of colonoscopy Hx of knee surgery Hx of myringotomy x29 sx. w/tubes S/P tonsillectomy Family History Mother Breast cancer Father Myocardial infarction Valvular heart disease Denies family history of Ovarian cancer Prostate cancer Colorectal cancer Social History Smoking Status: Current every day smoker Tobacco Type: Cigarettes Age Started Using Tobacco: 9; packs per day: 1; Cigarettes Per Day: 1 PPD; Second Hand Exposure: No; Do You Dip or Chew Tobacco: No; Hx Alcohol Use: No Hx Substance Use: Yes Non-Prescribed Medications: Marijuana Last Used Substance Other:: marijuana-04/12/22, uses daily; hx opioid use quit 10-15 years ago Substance Use Type Other:: 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 Preferred Language: Turkish Communication Ability: Effective Visual Impairment: No Limitations Hearing Ability: Hard of Hearing Regulatory Compliance Specialist Required: No Beliefs That Will Affect Care: None marital status: Single Current Living Situation: Alone Current Living Situation Comment: DAUGHTER 19Y/O, 2Y/O GRANDSON current occupational status: disabled How many Children do You have: 3 Feels Safe at Home: Declines to Answer Childhood Exposure to Second-Hand Smoke: Yes Diet: regular caffeine: Yes during the past year weight has: remained stable Dental Care, Regularly: No Physical Activity Frequency: Does not Exercise Seatbelt Use: never Sunscreen Use: No Assistive Devices: Oxygen - Continuous Review of Systems Review of Systems: At the time of my interview, the patient was too lethargic to contribute to his HPI or review of systems Physical Exam Physical Exam: The patient is lethargic and unable to respond to questions, congenital cleft lip and palate, with enlarged tongue, lying in bed and in mild to moderate distress with accessory muscle breathing HEENT--PERRL. See above Neck--supple. No JVD. No bruits. Thyroid normal, trachea midline, no adenopathy. Heart--normal S1 and S2. No murmurs, rubs or gallops. Lungs--few coarse breath sounds bilaterally. Mild/mod respiratory distress with accessory muscle use. Abdomen--normal bowel sounds and soft. Nontender. Nondistended. Morbidly obese. Extremities-- 3+ bilateral pretibial and pedal pitting edema Dermatologic--normal skin turgor, normal color, no abnormal lymph nodes, no rash. Neurologic--cranial nerves II through XII grossly intact. Rheumatologic--limited exam Psychiatric--lethargic and unable to respond Results & Data Results & Data Vital Signs (Past 12 Hours) Vital Signs Temp Pulse Pulse Resp BP BP Pulse Ox 01/16/23 20:00 36.9 C 75 20 142/78 H 94 01/16/23 17:28 75 16 94 01/16/23 17:11 73 01/16/23 16:45 36.9 C 71 24 156/94 H 90 O2 Del Method O2 Flow Rate 01/16/23 20:00 Nasal Cannula 4 01/16/23 17:28 Nasal Cannula 4 01/16/23 17:11 01/16/23 16:45 Room Air Laboratory Results Laboratory Results WBC 10.50 K/ul (4.8-10.8) 01/16/23 16:56 RBC 4.54 M/uL (4.70-6.10) L 01/16/23 16:56 Hgb 13.9 g/dl (14.0-18.0) L 01/16/23 16:56 POC Hgb 14.6 g/dl (14.0-18.0) 01/16/23 23:49 Hct 42.7 % (42.0-52.0) 01/16/23 16:56 POC Hct 43 % (42-52) 01/16/23 23:49 MCV 94.1 fL (80.0-100.0) 01/16/23 16:56 MCH 30.6 pg (25.0-34.0) 01/16/23 16:56 MCHC 32.6 g/dL (32.0-36.0) 01/16/23 16:56 RDW Std Deviation 43.5 fL (36.4-46.3) 01/16/23 16:56 RDW Coeff of Akash 12.6 % (11.5-14.5) 01/16/23 16:56 Plt Count 223 K/uL (130-400) 01/16/23 16:56 MPV 9.9 fL (9.4-12.4) 01/16/23 16:56 Immature Gran % (Auto) 0.4 % 01/16/23 16:56 Neut % (Auto) 63.3 % 01/16/23 16:56 Lymph % (Auto) 26.6 % 01/16/23 16:56 Carver % (Auto) 6.5 % 01/16/23 16:56 Eos % (Auto) 2.6 % 01/16/23 16:56 Baso % (Auto) 0.6 % 01/16/23 16:56 Neut # (Auto) 6.66 K/uL (1.40-6.50) H 01/16/23 16:56 Lymph # (Auto) 2.79 K/uL (1.2-3.4) 01/16/23 16:56 Carver # (Auto) 0.68 K/uL (0.11-0.59) H 01/16/23 16:56 Eos # (Auto) 0.27 K/uL (0-0.50) 01/16/23 16:56 Baso # (Auto) 0.06 K/uL (0-0.2) 01/16/23 16:56 Immature Gran # (Auto) 0.04 K/uL (0.01-0.20) 01/16/23 16:56 Sample Site L Radial 01/16/23 23:49 POC pH 7.47 (7.35-7.45) H 01/16/23 23:49 POC pCO2 47 mmHg (35-46) H 01/16/23 23:49 POC pO2 46 mmHg (80-95) L 01/16/23 23:49 POC HCO3 34 henri/L (19-24) H 01/16/23 23:49 POC Total CO2 35 mmol/L (24-31) H 01/16/23 23:49 POC Base Excess 10.0 henri/L (-9-1.8) H 01/16/23 23:49 ABG pH (Temp Correct) 7.462 (7.35-7.45) H 01/16/23 23:49 ABG pCO2 (Temp Corrct 47 mmHg (35-46) H 01/16/23 23:49 POC ABG pO2 at Pt Temp 46 01/16/23 23:49 POC ABG O2 Sat 83.0 % (90-95) L 01/16/23 23:49 Ramsey Test Pass 01/16/23 23:49 VBG pH 7.31 (7.36-7.41) L 01/16/23 18:16 VBG pCO2 81 mmHg (38-50) H 01/16/23 18:16 VBG pO2 32 mmHg 01/16/23 18:16 VBG HCO3 41 mmol/L 01/16/23 18:16 VBG O2 Saturation < 60.0 % 01/16/23 18:16 VBG Base Excess 11.0 mEq/L 01/16/23 18:16 O2 Delivery Device Ventilator 01/16/23 23:49 POC O2 Rate 28 01/16/23 23:49 POC FiO2 40 % 01/16/23 23:49 Tidal Volume 465 01/16/23 23:49 PEEP 8 01/16/23 23:49 POC Sodium 142 mmol/L (135-144) 01/16/23 23:49 Sodium 141 mmol/L (136-145) 01/16/23 16:56 POC Potassium 3.5 mmol/L (3.3-5.0) 01/16/23 23:49 Potassium 3.6 mmol/L (3.5-5.1) 01/16/23 16:56 Chloride 100 mmol/L (98-107) 01/16/23 16:56 Carbon Dioxide 37 mmol/L (21-32) H 01/16/23 16:56 Anion Gap 4 (3-11) 01/16/23 16:56 BUN 9 mg/dl (6-23) 01/16/23 16:56 Creatinine 0.78 mg/dl (0.6-1.4) 01/16/23 16:56 Est Cr Clr Drug Dosing 104.0 ml/min 01/16/23 16:56 Est GFR ( Amer) 120.3 ml/min 01/16/23 16:56 Est GFR (Non-Af Amer) 103.8 ml/min 01/16/23 16:56 BUN/Creatinine Ratio 11.5 (10-20) 01/16/23 16:56 Glucose 111 mg/dl (70-99(Fasting)) H 01/16/23 16:56 Lactate 0.8 mmol/L (0.4-2.0) 01/16/23 23:15 Calcium 9.6 mg/dl (8.6-10.3) 01/16/23 16:56 Magnesium 1.8 mg/dl (1.7-2.4) 01/16/23 16:56 Total Bilirubin 0.7 mg/dl (0.2-1.0) 01/16/23 16:56 AST 26 U/L (13-39) 01/16/23 16:56 ALT 28 U/L (7-52) 01/16/23 16:56 Alkaline Phosphatase 79 U/L (34-104) 01/16/23 16:56 Troponin I High Sens 23.9 pg/ml (0-20) H 01/16/23 23:15 B-Natriuretic Peptide 97 pg/ml (0-100) 01/16/23 16:56 Total Protein 7.6 gm/dl (6.0-8.3) 01/16/23 16:56 Albumin 4.3 gm/dl (3.4-5.0) 01/16/23 16:56 Globulin 3.3 gm/dl (2.5-4.0) 01/16/23 16:56 Albumin/Globulin Ratio 1.3 (0.9-2) 01/16/23 16:56 TSH 2.821 uIu/ml (0.300-4.500) 01/16/23 16:56 Urine Color Yellow 01/16/23 18:49 Urine Appearance Clear (Clear) 01/16/23 18:49 Urine pH 5.5 (4.5-7.5) 01/16/23 18:49 Ur Specific [place] 1.006 (1.000-1.030) 01/16/23 18:49 Urine Protein Negative (Negative) 01/16/23 18:49 Urine Glucose (UA) Negative (Negative) 01/16/23 18:49 Urine Ketones Negative (Negative) 01/16/23 18:49 Urine Blood Trace (Negative) H 01/16/23 18:49 Urine Nitrite Negative (Negative) 01/16/23 18:49 Urine Bilirubin Negative (Negative) 01/16/23 18:49 Urine Urobilinogen Negative (Negative) 01/16/23 18:49 Ur Leukocyte Esterase Negative (Negative) 01/16/23 18:49 Urine WBC (Auto) 0 /hpf (0-5) 01/16/23 18:49 Urine RBC (Auto) 0-4 /hpf (0-4) 01/16/23 18:49 U Hyaline Cast (Auto) 1-5 /lpf (0-5) 01/16/23 18:49 U Epithel Cells (Auto) 0-5 /lpf (0-5) 01/16/23 18:49 Urine Bacteria (Auto) Negative (Negative) 01/16/23 18:49 Adenovirus (PCR) Not Detected (NotDetected) 01/16/23 16:56 B. pertussis DNA (PCR) Not Detected (NotDetected) 01/16/23 16:56 B.parapertussis DNA PCR Not Detected (NotDetected) 01/16/23 16:56 C. pneumoniae DNA (PCR) Not Detected (NotDetected) 01/16/23 16:56 Coronavirus OC43 (PCR) Not Detected (NotDetected) 01/16/23 16:56 Coronavirus HKU1 (PCR) Not Detected (NotDetected) 01/16/23 16:56 Coronavirus 229E (PCR) Not Detected (NotDetected) 01/16/23 16:56 SARS-CoV-2 (PCR) Not Detected (NotDetected) 01/16/23 16:56 Coronavirus NL63 (PCR) Not Detected (NotDetected) 01/16/23 16:56 Human Metapneumovir PCR Not Detected (NotDetected) 01/16/23 16:56 Influenza Type A (PCR) Not Detected (NotDetected) 01/16/23 16:56 Influenza Type B (PCR) Not Detected (NotDetected) 01/16/23 16:56 M. pneumoniae (PCR) Not Detected (NotDetected) 01/16/23 16:56 Parainfluenza 1 (PCR) Not Detected (NotDetected) 01/16/23 16:56 Parainfluenza 2 (PCR) Not Detected (NotDetected) 01/16/23 16:56 Parainfluenza 3 (PCR) Not Detected (NotDetected) 01/16/23 16:56 Parainfluenza 4 (PCR) Not Detected (NotDetected) 01/16/23 16:56 RSV (PCR) Not Detected (NotDetected) 01/16/23 16:56 Entero/Rhino (PCR) Not Detected (NotDetected) 01/16/23 16:56 Impressions Venous Doppler Study 01/16/23 17:30 Exam(s): US VENOUS BILATERAL LOWER EXTREMITIES EXAM: US Duplex Bilateral Lower Extremities Veins CLINICAL HISTORY: Edema. TECHNIQUE: Real-time duplex ultrasound scan of the bilateral lower extremity veins integrating B-mode two-dimensional vascular structure, Doppler spectral analysis, color flow Doppler imaging and compression. COMPARISON: No relevant prior studies available. FINDINGS: Right deep veins: Unremarkable. No DVT in the right common femoral, femoral, proximal deep femoral or popliteal veins. The veins demonstrate normal color flow, are normally compressible, with normal phasic flow and/or augmentation response. The interrogated calf veins are patent. Right superficial veins: Unremarkable. No thrombus in the saphenofemoral junction. Left deep veins: Unremarkable. No DVT in the left common femoral, femoral, proximal deep femoral or popliteal veins. The veins demonstrate normal color flow, are normally compressible, with normal phasic flow and/or augmentation response. The interrogated calf veins are patent. Left superficial veins: Unremarkable. No thrombus in the saphenofemoral junction. Soft tissues: Subcutaneous edema is noted involving the bilateral calves. No loculated fluid collection. No popliteal cyst. IMPRESSION: No evidence for deep vein thrombosis involving the bilateral lower extremities. Electronically signed by: Terry Hough MD 01/16/23 19:57 PM Chest CTA 01/17/23 00:09 Exam(s): CTA CHEST IV Amt: 118ML OPTIRAY 350 EXAM: CT Angiography Chest With Intravenous Contrast CLINICAL HISTORY: PE rule out, eval lung barrera. TECHNIQUE: Axial computed tomographic angiography images of the chest with intravenous contrast. Automated exposure control was utilized for the study. A dose lowering technique was utilized adhering to the principles of ALARA. MIP reconstructed images were created and reviewed. COMPARISON: 03/05/2013 FINDINGS: Pulmonary arteries: Accounting for limitations with respiratory artifact, there is no definite evidence for pulmonary embolism. Aorta: No acute findings. No thoracic aortic aneurysm. Lungs: Dependent subsegmental changes noted in the posterior lower lobes, right slightly greater than left. Curvilinear changes right middle lobe and lingular segments are noted. No mass. Pleural space: Unremarkable. No significant effusion. No pneumothorax. Heart: Mild cardiomegaly. Bones/joints: No acute fracture. No dislocation. Soft tissues: Unremarkable. Lymph nodes: Unremarkable. No enlarged lymph nodes. Tubes, lines and devices: The endotracheal tube is only 11 mm above the camille. The nasogastric tube traverses the mediastinum and extends at least the distal body of the stomach. IMPRESSION: 1. Accounting for limitations with respiratory artifact, there is no definite evidence for pulmonary embolism. 2. Dependent subsegmental changes noted in the posterior lower lobes, right slightly greater than left. Suspect dependent atelectasis. However, subtle bibasilar infection is also a consideration. No pleural effusion or pneumothorax. Electronically signed by: Terry Hough MD 01/17/23 01:49 AM Code Status & VTE Plan Code Status Full code VTE Prophylaxis Plan VTE Prophylaxis will be ordered: Yes PG Care Time/CCT Total # of Minutes Spent Total Time Spent with Patient: Total time spent is greater than 50% in coordination of care (as documented) at patient's floor/unit and/or counseling patient: 50 minutes Coding Level of Care Code 42087 INT INP/OBS CARE 3/75MIN Diagnoses Acute respiratory failure with hypoxia and hypercapnia J96.01; J96.02 Current smoker F17.200 Required emergency intubation Z98.890 Fluid overload E87.70 Hypervolemia type: unspecified Elevated troponin R77.8 Cleft lip and palate Q37.9 Hyperlipidemia E78.5 Hyperglycemia R73.9 BPH w urinary obs/LUTS N40.1; N13.8 Comment Critical care time 50 minutes (4) Fluid overload Hypervolemia type: unspecified Qualified Code(s): E87.70 - Fluid overload, unspecified
[2023-01-16 20:49] LABS: iSTAT Arterial Blood Gas HCO3 41 meg/L (19-24); iSTAT Arterial Blood Gas pCO2 108 mmHg (35-46); iSTAT Arterial Blood Gas pH 7.19 (7.35-7.45); iSTAT Arterial Blood Gas pO2 78 mmHg (80-95); iSTAT Carbon Dioxide > 40 mmol/L (24-31); iSTAT Hematocrit 42 % (42-52); iSTAT Hemoglobin 14.3 g/dl (14.0-18.0); iSTAT Potassium 3.8 mmol/L (3.3-5.0); iSTAT Sodium 141 mmol/L (135-144)
[2023-01-16] MEDS ORDERED: methylPREDNISolone 125 MG/2 ML VIAL IV STA (21:19)
[2023-01-16] MEDS ORDERED: ONDANSETRON INJ 2 MG/ML 2 ML VIAL IV PRN (21:54)
[2023-01-16] MEDS ORDERED: ACETAMINOPHEN 325 MG TAB PO PRN ×2 (21:54→23:03)
[2023-01-16] MEDS ORDERED: GABAPENTIN 300 MG CAP PO SCH (21:54)
[2023-01-16] MEDS ORDERED: RAPID SEQUENCE INDUCTION BAG ONE (22:42)
[2023-01-16] MEDS ORDERED: PROPOFOL IV EMULSION 10 MG/ML 100 ML VIAL IV ONE (23:00)
[2023-01-16] MEDS ORDERED: PROPOFOL BOLUS FROM BAG IV PRN (23:03)
[2023-01-16] MEDS ORDERED: STAT IV Infusion **Titration per Protocol STA (23:03)
[2023-01-16] MEDS ORDERED: fentaNYL citrate PF 100 MCG/2 ML VIAL IV PRN (23:03)
--- NOTE | 2023-01-16 23:21 | Critical Care Consultation ---
Date of Consultation January 16, 2023 Assessment & Plan (1) Hypercapnic respiratory failure: (2) CHF (congestive heart failure): (3) Elevated troponin: (4) Lower back pain: (5) Required emergency intubation: (6) Current smoker: Plan Reason Critically Ill: 53 YOM admitted for hypercarbic respiratory failure, that failed BiPAP and required intubation and mechanical ventilation. Neuro - Chronic Lumbar Back Pain, Sedation for Mechanical Ventilation CAM ICU: [facility] - On Suboxone at home per family for years- Urine tox screen pending - Propofol for sedation - Fentanyl PRN/ infusion if needed - Sedation Holiday in morning if appropriate- awakens moves upper extremities. Cardiac - RBB, HTN, HFpEF, Elevated HsCTNi - Diuresing well from Lasix administered earlier- follow- diurese as hemodynamics allow - Likely has component of cor pulmonale from smoking history and likely undiagnosed COPD and non compliance with CPAP - ECHO in AM to eval for RWMA and estimation of RVSP if able - Continue to trend ECG and HScTNI - HScTNI likely demand in setting of respiratory failure- downtrending post intubation - Venous ultrasound performed in EMD negative for VTE Respiratory - Hypercarbic respiratory failure, current smoker, CYRUS, Likely undiagnosed COPD - Hypercarbic respiratory failure in setting of likely undiagnosed COPD- complicated by likely component of RV failure- diurese as above - CTA chest for PE and eval pulmonary barrera - Patient with no previous PFTs in system- does have old notes inferring non- compliance with CPAP however no sleep study available in our records - Continue ventilatory support per [employer]- wean as able - Improved ABG following intubation - will continue steroids and nebs for wheezing and hypercarbia - ECHO as above - He is without opacification on CXR or leukocytosis and NLR of 3:1- will hold on further abx other than Azithromycin for COPD as current smoker GI - No acute needs - OGT to LIWS RENAL/LYTES - NO acute needs - ICU electrolyte protocol - No acute needs - continue pineda ENDO - NO acute needs - ICU hyperglycemic protocol HEME - NO acute needs ID - No acute needs at this time - Follow WBC, Fever Curve, and clinical picture - no sputum production - Blood cultures drawn on arrival to [facility]- follow - Azithromycin continue LINES/IV ACCESS - PIV, ETT, OGT, Pineda Continue use of these lines DVT PROPHYLAXIS - SCDs, Lovenox DISPO: ICU while intubated and sedated Family: Updated Daughter Liliya [phone]- all questions answered to satisfaction, to best of my ability at this time. I have personally spent 55 minutes of critical care time in the direct management of this patient. This is a life/limb threatening event. This includes time spent evaluating patient, direct bedside care, chart review, placing orders, interpretation of diagnostic studies, discussion with consultants, patient, and family members, as well as other required patient management activities. This time is exclusive of all separately billable procedures, and separate from and in addition to any other critical care service time. Thank you for allowing us to participate in the care of this patient. Please refer to my attending physician's documentation for any further recommendations. Supervising Physician Co-Signing Physician Notes Patient seen and examined. Agree with below assessment and plan. 53 male with chronic hypercapnic respiratory failure, CYRUS/OHS, chronic pain on suboxone, 40 ppd smoker, substance use and medical noncompliance. Admitted on 01/16/2023 with complaints of dyspnea and lower extremity swelling. Due to worsening hypercapnia and C02 narcosis, intubated overnight after failing a trial of NIV. Sedated this am on propofol, weanig Fi02. BNP noted to be low. Intake CT without PE but with concerns for cor pulmonale / chronic pulm HTN. TTE pending this am. Plan: 1. Wean sedation for RASS -2 2. Adjust minute ventilation to 6L/min, to achieve PC02 60 which is his calculated baseline, to avoid apnea 3. SAT/SBT today 4. Continue scheduled diuresis with IV lasix 40 bid 6. 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 Patient came to the EMD today for complaint of increasing swelling of his lower extremities and feeling "full of fluid", as well as dyspnea with exertion. Family has been contacted following intubation and notes that he has been feeling tired all the time at home as well as decrease in activity. His ECG was without STEMI in the EMD and noteable for RBB. He had CXR performed and was given NTG paste and IV lasix for concern of pulmonary edema- BNP at 97. He had a VBG done in the EMD with co2 at 81, and ABG done at 2030 with increasing CO2 to 108 with a PH of 7.19- he was initiated on BiPAP with repeat ABG performed once he got to the floor noted worsening of PH to 7.0 and PaCO2 >130 and HCO3 undetectable. Patient was immediately brought to the ICU where he was obtunded, VT of 600 on BiPAP with RR of 28, he was positioned in bed, ramped and with chin lift and head tilt VT was able to get to 800-1000 ml. He was prepped for intubation. Intubation was performed by Dr. Milan from [facility] without difficult- see separate procedure note. Overall patient multitude of factors impacting his ventilatory drive at this time mostly noting mentation and body habitus as well as neck and big tongue as well as adentulous. Will repeat ABG, provide solumederol, obtain ECHO in morning and control BP. Patient is FULL CODE Respiratory biofire and COVID testing: NEGATIVE Allergies Allergy/AdvReac Type Severity Reaction Status Date / Time moxifloxacin Allergy Intermediate RASH Verified 01/16/23 18:23 Penicillins Allergy Unknown CAN'T Verified 01/16/23 18:23 REMEMBER Home Medications Medication Instructions Recorded Confirmed Type buprenorphine 8 mg-naloxone 2 mg 1 film sublingual BID 03/15/20 01/16/23 History sublingual film (Suboxone) albuterol sulfate 90 mcg/actuation 1 - 2 puff inhalation UD PRN 04/12/22 01/16/23 History aerosol inhaler (Ventolin HFA) shortness of breath or wheezing rosuvastatin 5 mg tablet 5 mg PO HS #90 tabs 10/07/22 01/16/23 Rx gabapentin 300 mg capsule 300 mg PO HS #30 caps 10/31/22 01/16/23 Rx acetaminophen 500 mg tablet 500 - 1,000 mg PO DIRECTED PRN 01/16/23 01/16/23 History (Tylenol Extra Strength) Pain Patient History Medical History Anxiety BPH (benign prostatic hyperplasia) Chronic obstructive pulmonary disease inh prn History of anesthesia problem "feels like his head is going to blow up after anesthesia" History of dyspnea History of inguinal hernia Lt-no repair done History of knee problem Pt "is bow legged" Hx of hypotension Hx of migraines Opioid abuse hx Sleep apnea had cpap-"not able to use, so they took it back" Surgical History Eustachian tube obstruction H/O oral surgery teeth extracted History of back surgery History of esophagogastroduodenoscopy (EGD) History of repair of congenital cleft palate Hx of colonoscopy Hx of knee surgery Hx of myringotomy x29 sx. w/tubes S/P tonsillectomy Family History Mother Breast cancer Father Myocardial infarction Valvular heart disease Denies family history of Ovarian cancer Prostate cancer Colorectal cancer Social History Smoking Status: Current every day smoker Tobacco Type: Cigarettes Age Started Using Tobacco: 9; packs per day: 1; Cigarettes Per Day: 1 PPD; Second Hand Exposure: No; Do You Dip or Chew Tobacco: No; Hx Alcohol Use: No Hx Substance Use: Yes Non-Prescribed Medications: Marijuana Last Used Substance Other:: marijuana-04/12/22, uses daily; hx opioid use quit 10-15 years ago Substance Use Type Other:: 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 Preferred Language: Mauritian Communication Ability: Effective Visual Impairment: No Limitations Hearing Ability: Hard of Hearing Extension Clerk Required: No Beliefs That Will Affect Care: None marital status: Single Current Living Situation: Alone Current Living Situation Comment: DAUGHTER 19Y/O, 2Y/O GRANDSON current occupational status: disabled How many Children do You have: 3 Feels Safe at Home: Declines to Answer Childhood Exposure to Second-Hand Smoke: Yes Diet: regular caffeine: Yes during the past year weight has: remained stable Dental Care, Regularly: No Physical Activity Frequency: Does not Exercise Seatbelt Use: never Sunscreen Use: No Assistive Devices: Oxygen - Continuous Review of Systems Review of Systems: unable to obtain secondary to mentation- obtained from family with history of increase fatigue and dyspnea Physical Exam Physical Exam: PHYSICAL EXAM: General: obtunded and only grunts Head: Normocephalic, atraumatic ENT: PERRLA, EOMI, no pharyngeal exudate, mucous membranes dryt Neuro: AAO x 0, speech with grunts, able to lean on side and tripod on arrival moving upper extremities Chest: equal rise and fall of the chest, post intubation with good air movement bilaterally with wheeze Cardiac: Regular rate and rhythm, telemetry reviewed- NSR, skin warm dry, 3+ edema to lower extremities with venous color ulcerations GI: obese, soft, bowel sounds x4 quadrants : Pineda to gravity draining light darryl urine Skin: venous discolorations and dirt to feet bilaterally Results & Data Results & Data Vital Signs (Past 12 Hours) Vital Signs Temp Pulse Pulse Resp BP BP Pulse Ox 01/16/23 22:48 01/16/23 21:54 36.5 C 73 20 136/81 98 01/16/23 21:51 01/16/23 21:24 37.2 C 73 24 149/94 H 98 01/16/23 20:41 80 25 H 92 01/16/23 20:00 36.9 C 75 20 142/78 H 94 01/16/23 17:28 75 16 94 01/16/23 17:11 73 01/16/23 16:45 36.9 C 71 24 156/94 H 90 O2 Del Method O2 Flow Rate FiO2 01/16/23 22:48 BiPAP, CPAP 01/16/23 21:54 CPAP 01/16/23 21:51 50 01/16/23 21:24 CPAP 01/16/23 20:41 60 01/16/23 20:00 Nasal Cannula 4 01/16/23 17:28 Nasal Cannula 4 01/16/23 17:11 01/16/23 16:45 Room Air Laboratory Results Abnormal lab results 01/16/23 01/16/23 01/16/23 Range/Units 16:56 16:56 18:16 RBC 4.54 L (4.70-6.10) M/uL Hgb 13.9 L (14.0-18.0) g/dl Neut # (Auto) 6.66 H (1.40-6.50) K/uL Daggett # (Auto) 0.68 H (0.11-0.59) K/uL POC pH (7.35-7.45) POC pCO2 (35-46) mmHg POC pO2 (80-95) mmHg POC HCO3 (19-24) henri/L POC Total CO2 (24-31) mmol/L POC Base Excess (-9-1.8) henri/L VBG pH 7.31 L (7.36-7.41) VBG pCO2 81 H (38-50) mmHg Carbon Dioxide 37 H (21-32) mmol/L Glucose 111 H (70-99(Fasting)) mg/dl Troponin I High Sens 24.0 H (0-20) pg/ml Urine Blood (Negative) 01/16/23 01/16/23 01/16/23 Range/Units 18:49 20:34 23:15 RBC (4.70-6.10) M/uL Hgb (14.0-18.0) g/dl Neut # (Auto) (1.40-6.50) K/uL Daggett # (Auto) (0.11-0.59) K/uL POC pH 7.19 L* (7.35-7.45) POC pCO2 108 H (35-46) mmHg POC pO2 78 L (80-95) mmHg POC HCO3 41 H (19-24) henri/L POC Total CO2 > 40 H* (24-31) mmol/L POC Base Excess 13.0 H (-9-1.8) henri/L VBG pH (7.36-7.41) VBG pCO2 (38-50) mmHg Carbon Dioxide (21-32) mmol/L Glucose (70-99(Fasting)) mg/dl Troponin I High Sens 23.9 H (0-20) pg/ml Urine Blood Trace H (Negative) Diagnostic Findings Chest X-Ray 01/16/23 17:28 SINGLE VIEW CHEST CLINICAL HISTORY: Dyspnea FINDINGS: An AP, portable, upright chest radiograph is compared to study dated 03/08/2020. The heart is enlarged. The pulmonary vasculature is noncongested. Scarring/atelectasis is noted at the lung bases. No airspace consolidation or large pleural effusion is identified. No pneumothorax is seen. The skeletal structures are osteopenic. There is chronic posttraumatic deformity of the left clavicle. IMPRESSION: Cardiomegaly with no acute cardiopulmonary abnormality identified. ACT 112: Negative or not required by law. Electronically signed by: Jared Anderson M.D. 01/16/2023 5:49 PM Venous Doppler Study 01/16/23 17:30 Exam(s): US VENOUS BILATERAL LOWER EXTREMITIES EXAM: US Duplex Bilateral Lower Extremities Veins CLINICAL HISTORY: Edema. TECHNIQUE: Real-time duplex ultrasound scan of the bilateral lower extremity veins integrating B-mode two-dimensional vascular structure, Doppler spectral analysis, color flow Doppler imaging and compression. COMPARISON: No relevant prior studies available. FINDINGS: Right deep veins: Unremarkable. No DVT in the right common femoral, femoral, proximal deep femoral or popliteal veins. The veins demonstrate normal color flow, are normally compressible, with normal phasic flow and/or augmentation response. The interrogated calf veins are patent. Right superficial veins: Unremarkable. No thrombus in the saphenofemoral junction. Left deep veins: Unremarkable. No DVT in the left common femoral, femoral, proximal deep femoral or popliteal veins. The veins demonstrate normal color flow, are normally compressible, with normal phasic flow and/or augmentation response. The interrogated calf veins are patent. Left superficial veins: Unremarkable. No thrombus in the saphenofemoral junction. Soft tissues: Subcutaneous edema is noted involving the bilateral calves. No loculated fluid collection. No popliteal cyst. IMPRESSION: No evidence for deep vein thrombosis involving the bilateral lower extremities. Electronically signed by: Terry Hough MD 01/16/23 19:57 PM Exam(s): CTA CHEST IV Amt: 118ML OPTIRAY 350 EXAM: CT Angiography Chest With Intravenous Contrast CLINICAL HISTORY: PE rule out, eval lung barrera. TECHNIQUE: Axial computed tomographic angiography images of the chest with intravenous contrast. Automated exposure control was utilized for the study. A dose lowering technique was utilized adhering to the principles of ALARA. MIP reconstructed images were created and reviewed. COMPARISON: 03/05/2013 FINDINGS: Pulmonary arteries: Accounting for limitations with respiratory artifact, there is no definite evidence for pulmonary embolism. Aorta: No acute findings. No thoracic aortic aneurysm. Lungs: Dependent subsegmental changes noted in the posterior lower lobes, right slightly greater than left. Curvilinear changes right middle lobe and lingular segments are noted. No mass. Pleural space: Unremarkable. No significant effusion. No pneumothorax. Heart: Mild cardiomegaly. Bones/joints: No acute fracture. No dislocation. Soft tissues: Unremarkable. Lymph nodes: Unremarkable. No enlarged lymph nodes. Tubes, lines and devices: The endotracheal tube is only 11 mm above the camille. The nasogastric tube traverses the mediastinum and extends at least the distal body of the stomach. IMPRESSION: 1. Accounting for limitations with respiratory artifact, there is no definite evidence for pulmonary embolism. 2. Dependent subsegmental changes noted in the posterior lower lobes, right slightly greater than left. Suspect dependent atelectasis. However, subtle bibasilar infection is also a consideration. No pleural effusion or pneumothorax. Electronically signed by: Terry Hough MD 01/17/23 01:49 AM Dictated:01/17/23148 Transcribed: 01/17/23148 Medications Administered Home Medications buprenorphine 8 mg-naloxone 2 mg sublingual film (Suboxone) 1 film sublingual BID 03/15/20 [History Confirmed 01/16/23] albuterol sulfate 90 mcg/actuation aerosol inhaler (Ventolin HFA) 1 - 2 puff inhalation UD PRN shortness of breath or wheezing 04/12/22 [History Confirmed 01/16/23] rosuvastatin 5 mg tablet 5 mg PO HS #90 tabs 10/07/22 [Rx Confirmed 01/16/23] gabapentin 300 mg capsule 300 mg PO HS #30 caps 10/31/22 [Rx Confirmed 01/16/23] acetaminophen 500 mg tablet (Tylenol Extra Strength) 500 - 1,000 mg PO DIRECTED PRN Pain 01/16/23 [History Confirmed 01/16/23] Active Medications Acetaminophen (Acetaminophen 325 Mg Tab) 650 mg PO Q6H PRN PRN Reason: Pain or Fever Stop: 02/15/23 21:53 Acetaminophen (Acetaminophen 325 Mg Tab) 650 mg PO Q4H PRN PRN Reason: Fever/Mild Pain (Pain 1,2,3) Stop: 02/15/23 23:02 Albuterol (Albut/Ipratrop 3mg/0.5mg Neb 3 Ml Vial) 3 ml NEB QIDR [facility]; Protocol Stop: 02/16/23 06:59 Aspirin (Aspirin 81 Mg Ectab) 81 mg PO QAM [facility] Stop: 02/16/23 08:59 Buprenorphine/Naloxone (Buprenorphine/Naloxone 8/2 Mg Tab) 1 tab SL BID [facility] Stop: 02/15/23 21:53 Enoxaparin Sodium (Enoxaparin Inj 40 Mg/0.4 Ml Syr) 40 mg SQ HS [facility] Stop: 02/15/23 21:53 Fentanyl Citrate (Fentanyl Citrate Pf 100 Mcg/2 Ml Vial) 50 mcg IV Q2H PRN PRN Reason: Moderate Pain (4,5,6) on NRS Stop: 01/30/23 23:02 Furosemide (Furosemide 40 Mg/4 Ml Vial) 40 mg IV BID17 [facility] Stop: 02/16/23 08:59 Gabapentin (Gabapentin 300 Mg Cap) 300 mg PO HS [facility] Stop: 02/15/23 21:53 Methylprednisolone 40 mg/ (Syringe) 0.64 mls @ 1.5 mls/min IV Q8H [facility] Stop: 02/16/23 06:59 Cefepime HCl 2,000 mg/ Syringe 20 mls @ 5 mls/min IV Q12H [facility]; Protocol Stop: 01/24/23 07:59 Azithromycin 500 mg/ Dextrose 255 mls @ 127.5 mls/hr IV NOW STA Stop: 01/17/23 00:31 Azithromycin 250 mg/ Dextrose 252.5 mls @ 125 mls/hr IV Q24H [facility] Stop: 01/24/23 10:59 Propofol (Diprivan) 1,000 mg in 100 mls @ 11.988 mls/hr IV .Q8H21M [facility]; Protocol Stop: 01/19/23 23:14 Labetalol HCl (Labetalol Hcl Iv 5 Mg/Ml 20ml) 10 mg IV Q2H PRN PRN Reason: sbp >180 and/or DBP >90 Stop: 02/15/23 23:31 Miscellaneous (Remove Nicoderm Patch) 1 each N/A DAILY@0859 [facility] Stop: 02/16/23 08:58 Nitroglycerin (Nitroglycerin 2% Ointment 30gm Tube) 1 inch EXT Q6H [facility] Stop: 02/16/23 00:00 Ondansetron HCl (Ondansetron Inj 2 Mg/Ml 2 Ml Vial) 4 mg IV Q6H PRN PRN Reason: Nausea Stop: 02/15/23 21:53 Potassium Chloride (Potassium Chloride Crtab 20 Meq Tabcr) 40 meq PO BID [facility] Stop: 02/15/23 21:53 Propofol (Propofol Bolus From Bag) 20 mg IV Q5M PRN PRN Reason: Sedation Stop: 01/19/23 23:02 Rosuvastatin Calcium (Rosuvastatin Calcium 5 Mg Tab) 5 mg PO HS [facility] Stop: 02/15/23 21:53 ECG Additional Comments: Normal sinus rhythm Possible Left atrial enlargement Right bundle branch block Abnormal ECG When compared with ECG of 08-MAR-2020 20:59, Nonspecific T wave abnormality now evident in Inferior leads Nonspecific T wave abnormality now evident in Anterior leads QT has shortened Coding Level of Care Code 67042 CRITICAL CARE 1ST 30-74M Diagnoses Hypercapnic respiratory failure J96.92 CHF (congestive heart failure) I50.9 Heart failure chronicity: acute Heart failure type: unspecified Elevated troponin R77.8 Lower back pain M54.50 Required emergency intubation Z98.890 Current smoker F17.200 Time Spent (min) 65 (2) CHF (congestive heart failure) Heart failure chronicity: acute Heart failure type: unspecified Qualified Code(s): I50.9 - Heart failure, unspecified
[2023-01-16] MEDS: propofoL 1,000 MG/100 ML VIAL IV SCH (23:30)
[2023-01-16] MEDS ORDERED: LABETALOL HCL IV 5 MG/ML 20ML IV PRN (23:32)
--- NOTE | 2023-01-16 23:37 | Emergency Department Note ---
ED Visit Note Endotracheal Intubation Indication: respiratory failure. The patient was on 100% oxygen via NRB prior to the procedure. Suction, airway equipment, RSI drugs, respiratory equipment, and appropriate personnel were prepared prior to the initiation of the procedure. A time out was taken. Induction was performed with etomidate. After observing the clinical benefit of the medications, the airway was easily visualized utilizing a glidescope. A 7.5 size ETT tube was placed atraumatically to 26 cm using standard technique. The cuff inflated without signs of malfunction. There were bilateral breath sounds, positive colormetric change, no gastric sounds, a good capnography waveform, and post procedure pulse oximetry was 100%. There were no complications. .
[2023-01-17] MEDS ORDERED: NITROGLYCERIN 2% OINTMENT 30GM TUBE EXT SCH
[2023-01-17] MEDS ORDERED: fentaNYL BOLUS from BAG IV PRN (00:02)
[2023-01-17] MEDS ORDERED: STAT IV Infusion **Titration per Protocol STA (00:02)
[2023-01-17 00:03] LABS: iSTAT Allen Test Pass; iSTAT Art Bld Gas pCO2 Correct 47 mmHg (35-46); iSTAT Art Bld Gas pH Corrected 7.462 (7.35-7.45); iSTAT Arterial Blood Gas HCO3 34 meg/L (19-24); iSTAT Arterial Blood Gas pCO2 47 mmHg (35-46); iSTAT Arterial Blood Gas pH 7.47 (7.35-7.45); iSTAT Arterial Blood Gas pO2 46 mmHg (80-95); iSTAT Arterial Blood Gas pO2 C 46; iSTAT Carbon Dioxide 35 mmol/L (24-31); iSTAT FiO2 40 %; iSTAT Hematocrit 43 % (42-52); iSTAT Hemoglobin 14.6 g/dl (14.0-18.0); iSTAT Potassium 3.5 mmol/L (3.3-5.0); iSTAT Site L Radial; iSTAT Sodium 142 mmol/L (135-144)
[2023-01-17] MEDS ORDERED: ALBUTEROL 0.083% NEBU SOLN 3 ML VIAL NEB PRN (00:14)
[2023-01-17] MEDS ORDERED: fentaNYL citrate 2,500 MCG/250 ML BAG IV SCH (00:15)
[2023-01-17] MEDS: AZITHROMYCIN 500 MG in DEXTROSE 5% 250 ML IV STA ×2 (00:25→01:12)
[2023-01-17] MEDS: ROSUVASTATIN CALCIUM 5 MG TAB PO SCH ×2 (00:28→21:28)
[2023-01-17] MEDS: POTASSIUM CHLORIDE CRTAB 20 MEQ TABCR PO SCH ×2 (00:29→00:34)
[2023-01-17] MEDS: BUPRENORPHINE/NALOXONE 8/2 MG TAB SL SCH (00:31)
[2023-01-17] MEDS ORDERED: IOVERSOL 350 MG 125mL Prefilled Syringe IV ONE (00:48)
[2023-01-17] MEDS: ENOXAPARIN INJ 40 MG/0.4 ML SYR SQ SCH ×2 (01:12→21:28)
[2023-01-17] MEDS: propofoL 1,000 MG/100 ML VIAL IV SCH ×8 (01:13→22:41)
--- NOTE | 2023-01-17 01:49 | CT Scan Report ---
Exam(s): CTA CHEST IV Amt: 118ML OPTIRAY 350 EXAM: CT Angiography Chest With Intravenous Contrast CLINICAL HISTORY: PE rule out, eval lung barrera. TECHNIQUE: Axial computed tomographic angiography images of the chest with intravenous contrast. Automated exposure control was utilized for the study. A dose lowering technique was utilized adhering to the principles of ALARA. MIP reconstructed images were created and reviewed. COMPARISON: 03/05/2013 FINDINGS: Pulmonary arteries: Accounting for limitations with respiratory artifact, there is no definite evidence for pulmonary embolism. Aorta: No acute findings. No thoracic aortic aneurysm. Lungs: Dependent subsegmental changes noted in the posterior lower lobes, right slightly greater than left. Curvilinear changes right middle lobe and lingular segments are noted. No mass. Pleural space: Unremarkable. No significant effusion. No pneumothorax. Heart: Mild cardiomegaly. Bones/joints: No acute fracture. No dislocation. Soft tissues: Unremarkable. Lymph nodes: Unremarkable. No enlarged lymph nodes. Tubes, lines and devices: The endotracheal tube is only 11 mm above the camille. The nasogastric tube traverses the mediastinum and extends at least the distal body of the stomach. IMPRESSION: 1. Accounting for limitations with respiratory artifact, there is no definite evidence for pulmonary embolism. 2. Dependent subsegmental changes noted in the posterior lower lobes, right slightly greater than left. Suspect dependent atelectasis. However, subtle bibasilar infection is also a consideration. No pleural effusion or pneumothorax. Electronically signed by: Terry Hough MD 01/17/23 01:49 AM
[2023-01-17] MEDS ORDERED: CEFEPIME 2,000 MG in SYRINGE 0 ML IV SCH (02:00)
--- NOTE | 2023-01-17 02:06 | Billing Data ---
Date of Service January 17, 2023 Coding Level of Care Code 68160 CRITICAL CARE
[2023-01-17 02:07] LABS: Amphetamines+Metham, Urine Pos (Neg); Barbiturates, Urine Neg (Neg); Benzodiazepine, Urine Neg (Neg); Cocaine, Urine Neg (Neg); MDMA (Ecstacy), Urine Pos (Neg); Methadone, Urine Neg (Neg); Opiate, Urine Neg (Neg); Phencyclidine, Urine Neg (Neg)
[2023-01-17 04:41] LABS: iSTAT Allen Test Pass; iSTAT Art Bld Gas pCO2 Correct 48 mmHg (35-46); iSTAT Art Bld Gas pH Corrected 7.493 (7.35-7.45); iSTAT Arterial Blood Gas HCO3 36 meg/L (19-24); iSTAT Arterial Blood Gas pCO2 46 mmHg (35-46); iSTAT Arterial Blood Gas pH 7.51 (7.35-7.45); iSTAT Arterial Blood Gas pO2 85 mmHg (80-95); iSTAT Arterial Blood Gas pO2 C 92; iSTAT Carbon Dioxide 38 mmol/L (24-31); iSTAT FiO2 60 %; iSTAT Hematocrit 41 % (42-52); iSTAT Hemoglobin 13.9 g/dl (14.0-18.0); iSTAT Potassium 3.6 mmol/L (3.3-5.0); iSTAT Site R Brachial; iSTAT Sodium 140 mmol/L (135-144)
[2023-01-17 05:12] LABS: Hematocrit (blood only) 40.2 % (42.0-52.0); Hemoglobin 13.4 g/dl (14.0-18.0); Mean Corpuscular Hemoglobin 30.7 pg (25.0-34.0); Mean Corpuscular Hgb Conc 33.3 g/dL (32.0-36.0); Mean Corpuscular Volume 92.2 fL (80.0-100.0); Mean Platelet Volume 9.9 fL (9.4-12.4); Platelet Count 210 K/uL (130-400); RDW Coefficient of Variation 12.2 % (11.5-14.5); RDW Standard Deviation 41.5 fL (36.4-46.3); Red Blood Count 4.36 M/uL (4.70-6.10); White Blood Count 12.74 K/ul (4.8-10.8)
[2023-01-17 05:26] LABS: Anion Gap 6 (3-11); BUN Creatinine Ratio 12.6 (10-20); Blood Urea Nitrogen 12 mg/dl (6-23); Calcium 9.2 mg/dl (8.6-10.3); Carbon Dioxide 35 mmol/L (21-32); Chloride 98 mmol/L (98-107); Creatinine Clr Calc Pharmacy 96.9 ml/min; Est GFR (African American) 106.2 ml/min; Est GFR (Non-African American) 91.7 ml/min; Glucose 129 mg/dl (70-99(Fasting)); Potassium 3.7 mmol/L (3.5-5.1); Sodium 139 mmol/L (136-145)
[2023-01-17 05:32] LABS: Troponin I High Sensitivity 25.9 pg/ml (0-20)
[2023-01-17 05:43] LABS: Alanine Aminotransferase 25 U/L (7-52); Albumin Globulin Ratio 1.3 (0.9-2); Albumin Level 3.8 gm/dl (3.4-5.0); Alkaline Phosphatase 69 U/L (34-104); Aspartate Aminotransferase 25 U/L (13-39); Bilirubin,Total 0.7 mg/dl (0.2-1.0); Magnesium 1.6 mg/dl (1.7-2.4); Total Protein 6.8 gm/dl (6.0-8.3)
[2023-01-17 05:44] LABS: Basophils # (auto) 0.03 K/uL (0-0.2); Basophils % (auto) 0.2 %; Eosinophils # (auto) 0.01 K/uL (0-0.50); Eosinophils % (auto) 0.1 %; Immature Granulocytes # (auto) 0.05 K/uL (0.01-0.20); Immature Granulocytes % (auto) 0.4 %; Lymphocytes # (auto) 0.66 K/uL (1.2-3.4); Lymphocytes % (auto) 5.2 %; Monocytes # (auto) 0.16 K/uL (0.11-0.59); Monocytes % (auto) 1.3 %; Neutrophils # (auto) 11.83 K/uL (1.40-6.50); Neutrophils % (auto) 92.8 %
[2023-01-17 06:11] LABS: Phosphorus < 1.0 mg/dl (2.5-4.9)
--- NOTE | 2023-01-17 06:31 | XRay Report ---
SUPINE PORTABLE AP CHEST RADIOGRAPH CLINICAL HISTORY: eval ETT placement and OGT - post intubation COMPARISON STUDY: Chest CT March 05, 2013. Chest radiograph January 16, 2023 at 5:51 PM. FINDINGS: The second image obtained at 10:57 PM demonstrates tip of endotracheal tube 2.1 cm above th e camille. Tip of nasogastric tube is difficult to visualize but at least within the proximal stomach. No pneumothorax is identified on supine exam. A small right pleural effusion is present. Cardiomegal y is again noted. Patient is mildly rotated. There is mild interstitial thickening. IMPRESSION: 1. Tip of endotracheal tube 2.1 cm above the camille. 2. Cardiomegaly with mild interstitial pulmonary edema and a small right pleural effusion. ACT 112: Negative or not required by law. Electronically signed by: Ludwin Omer M.D. 01/17/2023 6:29 AM
[2023-01-17] MEDS ORDERED: SODIUM PHOSPHATE 3 MMOL/1 ML 5 ML VIAL IV ONE (06:40)
[2023-01-17] MEDS ORDERED: POTASSIUM CHLORIDE 20 MEQ/15 ML UDC NG ONE (06:46)
[2023-01-17] MEDS ORDERED: methylPREDNISolone 40 MG in SYRINGE 0 ML IV SCH (07:00)
[2023-01-17] MEDS: MAGNESIUM SULFATE / D5W 1 GM/100 ML BAG IV SCH ×4 (07:20→13:06)
[2023-01-17] MEDS: ICU ELECTROLYTE REPLACEMENT PROTOCOL SCH ×2 (07:22→18:16)
[2023-01-17] MEDS ORDERED: SODIUM PHOSPHATE 30 MMOL in DEXTROSE 5% 500 ML IV ONE (07:30)
--- NOTE | 2023-01-17 07:32 | Hospitalist Progress Note ---
Date of Service January 17, 2023 Assessment & Plan (1) Acute respiratory failure with hypoxia and hypercapnia: Plan: Acute respiratory failure with hypoxia and hypercapnia/required emergent intubation/CHF exacerbation/pneumonia- History of smoking, does have alkalosis when CO2 correctred, suggests some COPD baseline Also evidence of tox + so cannot rule out respiratory depression from toxic encephalopahty Furosemide 40 mg IV twice daily Duonebs every 4 hours while awake and every 2 hours when necessary. Solu-Medrol 125 mg IV followed by 40 mg IV every 8 hours Cefepime 2 g discontinue, CTA chest shows no PE but subtle atelectasis vs infiltrare at based, cannot rule out aspiration pneumonia profound hypophosphatemia and magnesemia (2) Elevated troponin: Plan: Pt with elevated troponin and cannot rule out HF unknown type, last echo in 2019 shows preserved EF trend troponin does not show elevation suspect demand ischemia Echo normal EF no regional wall motion abnormalities dilated RV with normal estimated right ventricular pressure similar to previous study of 2020 (3) BPH w urinary obs/LUTS: Plan: chronic unknown if stable (4) Chronic pain: Plan: patient typically on Suboxone for chronic pain this is currently held Admission and Anticipated Discharge Date Admission Date: January 16, 2023 Subjective Patient is sedated and ventilated Physical Exam Physical Exam: Patient is sedated and ventilated respiratory status is coarse but good air movement bilaterally. Patient has dirt ground into his hands and feet unclear why Abdomen is soft Results & Data Results & Data Vital Signs (Past 12 Hours) Vital Signs Temp Pulse Pulse Resp BP BP Pulse Ox 01/17/23 01:00 01/17/23 04:24 75 18 95 01/17/23 02:28 70 20 97 01/17/23 02:08 68 01/17/23 01:30 100.4 F H 66 20 98 01/17/23 01:20 100.2 F H 70 20 97 01/17/23 01:15 112/73 01/17/23 01:15 100.2 F H 64 20 98 01/17/23 01:10 100.0 F H 68 20 98 01/17/23 01:01 99/68 L 01/17/23 01:01 100.0 F H 68 20 95 01/17/23 01:00 100.0 F H 67 20 95 01/17/23 00:56 100.0 F H 67 20 93 01/17/23 00:10 99.5 F 69 17 98 01/17/23 00:10 105/64 01/17/23 00:05 99.5 F 72 20 98 01/17/23 00:05 99/55 L 01/17/23 00:03 113/60 01/17/23 00:03 99.3 F 65 20 99 01/17/23 00:01 114/65 01/17/23 00:01 99.3 F 67 20 99 01/17/23 00:00 99.3 F 70 20 99 01/17/23 00:00 118/73 01/16/23 23:50 99.0 F 68 25 H 90 01/16/23 23:46 99.0 F 68 28 H 90 01/16/23 23:46 140/85 01/16/23 23:40 98.8 F 62 28 H 93 01/16/23 23:40 141/102 H 01/16/23 23:38 98.8 F 67 24 93 01/16/23 23:38 169/87 H 01/16/23 23:36 98.8 F 78 28 H 93 01/16/23 23:36 194/138 H 01/16/23 23:31 199/121 H 01/16/23 23:31 98.6 F 69 28 H 01/16/23 23:30 98.6 F 69 28 H 01/16/23 23:26 195/110 H 01/16/23 23:26 65 25 H 98 01/16/23 23:21 226/135 H 01/16/23 23:21 28 H 95 01/16/23 23:20 25 H 97 01/16/23 23:15 219/127 H 01/16/23 23:15 77 28 H 98 01/16/23 23:10 81 28 H 100 01/16/23 23:10 185/111 H 01/16/23 23:05 183/116 H 01/16/23 23:05 87 25 H 100 01/16/23 23:00 87 25 H 100 01/16/23 23:00 164/109 H 01/16/23 22:50 80 16 100 01/16/23 22:50 166/97 H 01/16/23 22:40 93 H 13 01/16/23 21:30 75 23 86 L 01/16/23 21:30 142/93 H 01/16/23 21:20 73 17 97 01/17/23 01:40 01/16/23 23:55 64 22 96 01/16/23 23:49 01/16/23 23:49 01/16/23 23:00 51 L 28 H 100 01/16/23 22:48 01/16/23 21:54 97.7 F 73 20 136/81 98 01/16/23 21:51 01/16/23 21:24 99.0 F 73 24 149/94 H 98 01/16/23 20:41 80 25 H 92 01/16/23 20:00 98.4 F 75 20 142/78 H 94 Pulse Ox O2 Del Method O2 Del Method O2 Flow Rate FiO2 01/17/23 01:00 Mechanical Vent 0.60 01/17/23 04:24 50 01/17/23 02:28 60 01/17/23 02:08 01/17/23 01:30 0.60 01/17/23 01:20 01/17/23 01:15 01/17/23 01:15 01/17/23 01:10 01/17/23 01:01 01/17/23 01:01 01/17/23 01:00 01/17/23 00:56 01/17/23 00:10 01/17/23 00:10 01/17/23 00:05 01/17/23 00:05 01/17/23 00:03 01/17/23 00:03 01/17/23 00:01 01/17/23 00:01 01/17/23 00:00 01/17/23 00:00 01/16/23 23:50 01/16/23 23:46 01/16/23 23:46 01/16/23 23:40 01/16/23 23:40 01/16/23 23:38 01/16/23 23:38 01/16/23 23:36 01/16/23 23:36 01/16/23 23:31 01/16/23 23:31 01/16/23 23:30 01/16/23 23:26 01/16/23 23:26 01/16/23 23:21 01/16/23 23:21 01/16/23 23:20 01/16/23 23:15 01/16/23 23:15 01/16/23 23:10 01/16/23 23:10 01/16/23 23:05 01/16/23 23:05 01/16/23 23:00 01/16/23 23:00 01/16/23 22:50 01/16/23 22:50 01/16/23 22:40 01/16/23 21:30 01/16/23 21:30 01/16/23 21:20 01/17/23 01:40 Mechanical Vent 01/16/23 23:55 60 01/16/23 23:49 91 Mechanical Vent 01/16/23 23:49 89 L Mechanical Vent 01/16/23 23:00 40 01/16/23 22:48 BiPAP, CPAP 01/16/23 21:54 CPAP 01/16/23 21:51 50 01/16/23 21:24 CPAP 01/16/23 20:41 60 01/16/23 20:00 Nasal Cannula 4 Laboratory Results Reviewed CBC, reviewed chemistry, reviewed low phosphorus and magnesium, reviewed ABG PG Care Time/CCT Total # of Minutes Spent Total Time Spent with Patient: Total time spent is greater than 50% in coordination of care (as documented) at patient's floor/unit and/or counseling patient: Coding Level of Care Code 82171 SUB INP/OBS CARE 2/35MIN Diagnoses Acute respiratory failure with hypoxia and hypercapnia J96.01; J96.02 Elevated troponin R77.8 BPH w urinary obs/LUTS N40.1; N13.8 Chronic pain G89.29
[2023-01-17] MEDS: ALBUT/IPRATROP 3MG/0.5MG NEB 3 ML VIAL NEB SCH ×4 (08:08→19:52)
[2023-01-17] MEDS ORDERED: Nursing to Pharmacy Communication SCH (08:30)
[2023-01-17] MEDS ORDERED: ASPIRIN 81 MG ECTAB PO SCH (09:00)
[2023-01-17] MEDS ORDERED: FUROSEMIDE 40 MG/4 ML VIAL IV SCH (09:00)
[2023-01-17] MEDS ORDERED: FAMOTIDINE 20 MG in SYRINGE 3 ML IV SCH (09:00)
[2023-01-17 09:45] LABS: iSTAT Allen Test Pass; iSTAT Art Bld Gas pCO2 Correct 61 mmHg (35-46); iSTAT Art Bld Gas pH Corrected 7.388 (7.35-7.45); iSTAT Arterial Blood Gas HCO3 37 meg/L (19-24); iSTAT Arterial Blood Gas pCO2 61 mmHg (35-46); iSTAT Arterial Blood Gas pH 7.39 (7.35-7.45); iSTAT Arterial Blood Gas pO2 62 mmHg (80-95); iSTAT Arterial Blood Gas pO2 C 63; iSTAT Carbon Dioxide 38 mmol/L (24-31); iSTAT Hematocrit 41 % (42-52); iSTAT Hemoglobin 13.9 g/dl (14.0-18.0); iSTAT Potassium 3.7 mmol/L (3.3-5.0); iSTAT Site L Radial; iSTAT Sodium 138 mmol/L (135-144)
[2023-01-17] MEDS: ICU Protocol for HYPERglycemia SCH ×4 (10:52→21:28)
[2023-01-17] MEDS ORDERED: AZITHROMYCIN 250 MG in DEXTROSE 5% 250 ML IV SCH (11:00)
[2023-01-17] MEDS ORDERED: AZITHROMYCIN 500 MG in DEXTROSE 5% 250 ML IV SCH (11:00)
[2023-01-17] MEDS ORDERED: GLUCOSE 10 TAB/TUBE PO PRN (12:00)
[2023-01-17] MEDS ORDERED: GLUCOSE 40% GEL 15 GM TUBE PO PRN (12:00)
[2023-01-17] MEDS ORDERED: GLUCAGON FOR INJ 1 MG VIAL IM PRN (12:00)
[2023-01-17] MEDS ORDERED: DEXTROSE 50% 50 ML SYRINGE IV PRN (12:00)
[2023-01-17] MEDS ORDERED: CARBOHYDRATES FOR HYPOGLYCEMIA PO PRN (12:00)
[2023-01-17] MEDS: INSULIN ASPART PER UNIT CHARGE SC SCH ×2 (12:18→17:29)
--- NOTE | 2023-01-17 12:26 | XCELERA ---
[id number] \\[email or web address]\[id number]
[2023-01-17] MEDS: FUROSEMIDE INJ 20 MG/2 ML VIAL IV SCH (17:24)
[2023-01-17 18:03] LABS: BUN Creatinine Ratio 13.2 (10-20); Calcium 9.1 mg/dl (8.6-10.3); Est GFR (African American) 79.3 ml/min; Est GFR (Non-African American) 68.4 ml/min; Magnesium 2.7 mg/dl (1.7-2.4); Phosphorus 4.6 mg/dl (2.5-4.9); Potassium 3.2 mmol/L (3.5-5.1)
[2023-01-17] MEDS ORDERED: POTASSIUM CHLORIDE 20 MEQ/15 ML UDC PO STA (18:12)
[2023-01-17] MEDS ORDERED: POTASSIUM CHLORIDE 20 MEQ/15 ML UDC PO ONE (22:00)
--- NOTE | 2023-01-17 23:13 | Electrocardiogram Report ---
Test Reason : Blood Pressure : / mmHG Vent. Rate : 075 BPM Atrial Rate : 075 BPM P-R Int : 132 ms QRS Dur : 134 ms QT Int : 448 ms P-R-T Axes : 064 079 -11 degrees QTc Int : 501 ms Normal sinus rhythm Possible Left atrial enlargement Right bundle branch block Abnormal ECG When compared with ECG of 08-MAR-2020 20:59, Nonspecific T wave abnormality now evident in Inferior leads Nonspecific T wave abnormality now evident in Anterior leads Confirmed by Kan Burks ([id number] on 01/17/2023 11:12:50 PM Referred By: REFERRED SELF Confirmed By:Kan Burks
--- NOTE | 2023-01-18 00:09 | Electrocardiogram Report ---
Test Reason : Blood Pressure : / mmHG Vent. Rate : 071 BPM Atrial Rate : 071 BPM P-R Int : 136 ms QRS Dur : 124 ms QT Int : 488 ms P-R-T Axes : 055 067 066 degrees QTc Int : 530 ms Normal sinus rhythm Right bundle branch block Abnormal ECG When compared with ECG of 16-JAN-2023 16:54, Nonspecific T wave abnormality, improved in Inferior leads Inverted T waves have replaced nonspecific T wave abnormality in Anterior leads Confirmed by Kan Burks ([id number] on 01/18/2023 12:09:27 AM Referred By: REFERRED SELF Confirmed By:Kan Burks
[2023-01-18] MEDS: INSULIN ASPART PER UNIT CHARGE SC SCH ×5 (00:25→20:29)
[2023-01-18] MEDS: propofoL 1,000 MG/100 ML VIAL IV SCH ×2 (02:28→07:38)
[2023-01-18 03:09] LABS: Potassium 4.5 mmol/L (3.5-5.1)
[2023-01-18 03:10] LABS: BUN Creatinine Ratio 19.8 (10-20); Calcium 8.6 mg/dl (8.6-10.3); Creatinine Clr Calc Pharmacy 86.8 ml/min; Est GFR (African American) 93.1 ml/min; Est GFR (Non-African American) 80.3 ml/min; Magnesium 2.4 mg/dl (1.7-2.4); Phosphorus 3.5 mg/dl (2.5-4.9)
[2023-01-18 05:09] LABS: Basophils # (auto) 0.01 K/uL (0-0.2); Basophils % (auto) 0.1 %; Hematocrit (blood only) 38.8 % (42.0-52.0); Hemoglobin 13.3 g/dl (14.0-18.0); Immature Granulocytes # (auto) 0.07 K/uL (0.01-0.20); Immature Granulocytes % (auto) 0.4 %; Lymphocytes # (auto) 1.82 K/uL (1.2-3.4); Lymphocytes % (auto) 10.4 %; Mean Corpuscular Hemoglobin 30.6 pg (25.0-34.0); Mean Corpuscular Hgb Conc 34.3 g/dL (32.0-36.0); Mean Corpuscular Volume 89.2 fL (80.0-100.0); Mean Platelet Volume 10.1 fL (9.4-12.4); Monocytes # (auto) 1.42 K/uL (0.11-0.59); Monocytes % (auto) 8.1 %; Neutrophils # (auto) 14.19 K/uL (1.40-6.50); Platelet Count 231 K/uL (130-400); RDW Coefficient of Variation 12.5 % (11.5-14.5); RDW Standard Deviation 41.1 fL (36.4-46.3); Red Blood Count 4.35 M/uL (4.70-6.10); White Blood Count 17.51 K/ul (4.8-10.8)
[2023-01-18 05:19] LABS: Calcium 8.7 mg/dl (8.6-10.3); Creatinine Clr Calc Pharmacy 83.6 ml/min; Est GFR (Non-African American) 76.8 ml/min; Magnesium 2.5 mg/dl (1.7-2.4); Phosphorus 3.8 mg/dl (2.5-4.9); Potassium 4.7 mmol/L (3.5-5.1)
[2023-01-18 05:22] LABS: iSTAT Allen Test Pass; iSTAT Art Bld Gas pCO2 Correct 55 mmHg (35-46); iSTAT Art Bld Gas pH Corrected 7.422 (7.35-7.45); iSTAT Arterial Blood Gas HCO3 36 meg/L (19-24); iSTAT Arterial Blood Gas pCO2 54 mmHg (35-46); iSTAT Arterial Blood Gas pH 7.43 (7.35-7.45); iSTAT Arterial Blood Gas pO2 81 mmHg (80-95); iSTAT Arterial Blood Gas pO2 C 85; iSTAT Carbon Dioxide 38 mmol/L (24-31); iSTAT Hematocrit 39 % (42-52); iSTAT Hemoglobin 13.3 g/dl (14.0-18.0); iSTAT Potassium 4.6 mmol/L (3.3-5.0); iSTAT Site L Radial; iSTAT Sodium 137 mmol/L (135-144)
[2023-01-18] MEDS: ICU ELECTROLYTE REPLACEMENT PROTOCOL SCH ×2 (05:35→17:35)
[2023-01-18] MEDS ORDERED: PANTOprazole 40 MG in SYRINGE 0 ML IV ONE (07:00)
[2023-01-18] MEDS: ALBUT/IPRATROP 3MG/0.5MG NEB 3 ML VIAL NEB SCH ×4 (07:09→19:32)
[2023-01-18] MEDS: ICU Protocol for HYPERglycemia SCH ×4 (07:38→20:11)
[2023-01-18] MEDS: FUROSEMIDE INJ 20 MG/2 ML VIAL IV SCH (07:39)
[2023-01-18] MEDS: ASPIRIN 81 MG CHEW PO SCH (08:06)
[2023-01-18] MEDS ORDERED: methylPREDNISolone 40 MG in SYRINGE 0 ML IV SCH (09:00)
--- NOTE | 2023-01-18 10:26 | Critical Care Progress Note ---
Date of Service January 18, 2023 Assessment & Plan (1) Hypercapnic respiratory failure: (2) CHF (congestive heart failure): (3) Elevated troponin: (4) Lower back pain: (5) Required emergency intubation: (6) Current smoker: Plan Reason Critically Ill: 53 YOM admitted for hypercarbic respiratory failure, that failed BiPAP and required intubation and mechanical ventilation, extubated 01/18/2023. Neuro 1. Chronic Lumbar Back Pain - On Suboxone at home per family for years- will continue - Continue home psych meds, thiamine, mutlivitamin Cardiac 1. RBB 2. HTN 3. HFpEF - Transition to lasix po 20 mg daily Respiratory 1. Hypercarbic respiratory failure 2. current smoker 3. CYRUS/ OHS 4. Probable COPD - Prednisone taper for 3 more days - Continue bronchodilators - Recommend bipap 28/01 for sleep, based on blood gases, likely will qualify for home bipap but PAP tolerance / compliance has been a barrier GI -- Start bowel regimen RENAL -- ETHEL pineda ENDO - NO acute needs - ICU hyperglycemic protocol HEME - NO acute needs ID - No acute needs at this time - De-escalate abx DVT PROPHYLAXIS - SCDs, Lovenox Family: Updated Daughter Liliya [phone] Admission and Anticipated Discharge Date Admission Date: January 16, 2023 Subjective 01/18/2023. Extubated this am. A/O x 3. On nc oxygen. Results & Data Results & Data Vital Signs (Past 12 Hours) Vital Signs Temp Pulse Resp BP Pulse Ox FiO2 01/18/23 09:01 37.5 C 68 14 89 L 01/18/23 09:01 111/63 01/18/23 09:00 37.5 C 69 15 90 01/18/23 07:11 75 20 96 40 01/18/23 08:01 37.3 C 75 22 94 01/18/23 08:01 135/71 01/18/23 08:00 37.3 C 76 24 92 01/18/23 07:01 37.3 C 75 16 91 01/18/23 07:01 125/70 01/18/23 07:00 37.3 C 72 18 91 01/18/23 06:45 37.4 C 74 18 87 L 01/18/23 08:00 40 01/18/23 08:00 75 01/18/23 05:01 134/74 01/18/23 05:01 37.7 C H 75 18 92 01/18/23 05:00 37.7 C H 72 18 92 01/18/23 04:01 128/72 01/18/23 04:01 37.8 C H 74 18 92 01/18/23 04:00 37.8 C H 73 18 92 01/18/23 03:01 37.9 C H 76 18 93 01/18/23 03:01 128/72 01/18/23 03:00 37.9 C H 77 17 93 01/18/23 02:01 137/71 01/18/23 02:01 38.0 C H 78 18 92 01/18/23 02:00 38.0 C H 78 18 92 01/18/23 01:00 37.9 C H 78 18 92 01/18/23 01:00 136/68 01/18/23 04:00 50 01/18/23 03:14 79 19 92 50 01/18/23 00:01 37.9 C H 76 21 91 01/18/23 00:01 129/65 01/18/23 00:00 37.9 C H 75 18 91 01/17/23 23:00 37.8 C H 79 18 91 01/17/23 23:00 123/64 01/18/23 00:00 50 01/18/23 00:00 78 01/17/23 23:12 77 19 92 50 Coding Level of Care Code 81219 CRITICAL CARE 1ST 30-74M Diagnoses Hypercapnic respiratory failure J96.92 CHF (congestive heart failure) I50.9 Heart failure chronicity: acute Heart failure type: unspecified Elevated troponin R77.8 Lower back pain M54.50 Required emergency intubation Z98.890 Current smoker F17.200 Time Spent (min) 35 (2) CHF (congestive heart failure) Heart failure chronicity: acute Heart failure type: unspecified Qualified Code(s): I50.9 - Heart failure, unspecified
[2023-01-18] MEDS: THIAMINE HCL 100 MG TAB PO SCH (11:06)
[2023-01-18] MEDS: CEROVITE ADV FORMULA TAB PO SCH (11:06)
[2023-01-18] MEDS: SENNA 8.6 MG TAB PO SCH (11:06)
--- NOTE | 2023-01-18 13:45 | Electrocardiogram Report ---
Test Reason : Blood Pressure : / mmHG Vent. Rate : 072 BPM Atrial Rate : 072 BPM P-R Int : 134 ms QRS Dur : 122 ms QT Int : 452 ms P-R-T Axes : -06 -02 005 degrees QTc Int : 494 ms Normal sinus rhythm Right bundle branch block Nonspecific T wave abnormality Abnormal ECG Confirmed by Scott Lau ([id number]) on 01/18/2023 1:44:59 PM Referred By: REFERRED SELF Confirmed By:Uri Lau
--- NOTE | 2023-01-18 18:14 | Hospitalist Progress Note ---
Date of Service January 18, 2023 Assessment & Plan (1) Acute respiratory failure with hypoxia and hypercapnia: Plan: Acute respiratory failure with hypoxia and hypercapnia/required emergent intubation/CHF exacerbation/pneumonia- History of smoking, does have alkalosis when CO2 correctred, suggests some COPD baseline Also evidence of tox + so cannot rule out respiratory depression from toxic encephalopahty Successful extubation on 01/18/2023 Furosemide 40 mg IV twice daily Duonebs every 4 hours while awake and every 2 hours when necessary. Solu-Medrol de-escalate to prednisone 20 CTA chest shows no PE but subtle atelectasis vs infiltrate at based, cannot rule out aspiration pneumonia negative procalcitonin patient de-escalated off antibiotics by pulmonary critical care profound hypophosphatemia and magnesemia replete (2) Elevated troponin: Plan: Pt with elevated troponin and cannot rule out HF unknown type, last echo in 2019 shows preserved EF trend troponin does not show elevation suspect demand ischemia Echo normal EF no regional wall motion abnormalities dilated RV with normal estimated right ventricular pressure similar to previous study of 2019 (3) BPH w urinary obs/LUTS: Plan: chronic unknown no complaints at present (4) Chronic pain: Plan: patient typically on Suboxone for chronic pain this is currently held Admission and Anticipated Discharge Date Admission Date: January 16, 2023 Subjective 01/18/2023. Extubated this am. A/O x 3. on nasal canulae oxygen low grade temp Physical Exam Physical Exam: Status post extubation patient is awake does respond is oriented to person and place cannot recall events of the last few days has a productive cough but this is just shortly after extubation Results & Data Results & Data Vital Signs (Past 12 Hours) Vital Signs Temp Pulse Pulse Resp BP Pulse Ox O2 Del Method 01/18/23 18:04 77 21 90 01/18/23 18:04 120/69 01/18/23 18:00 73 16 91 01/18/23 17:00 68 19 90 01/18/23 16:00 75 18 91 01/18/23 15:04 110/45 L 01/18/23 15:04 79 87 L 01/18/23 15:02 86 01/18/23 14:00 73 94 01/18/23 13:00 75 16 87 L 01/18/23 12:00 71 16 91 01/18/23 15:17 70 18 93 Nasal Cannula 01/18/23 15:05 72 01/18/23 11:17 72 18 94 Nasal Cannula 01/18/23 11:00 72 26 H 88 L 01/18/23 10:23 73 17 86 L 01/18/23 10:23 113/73 01/18/23 10:01 99.7 F H 71 17 94 01/18/23 10:01 137/68 01/18/23 10:00 99.7 F H 73 17 92 01/18/23 11:04 72 01/18/23 09:01 99.5 F 68 14 89 L 01/18/23 09:01 111/63 01/18/23 09:00 99.5 F 69 15 90 01/18/23 07:11 75 20 96 01/18/23 08:01 99.1 F 75 22 94 01/18/23 08:01 135/71 01/18/23 08:00 99.1 F 76 24 92 01/18/23 07:01 99.1 F 75 16 91 01/18/23 07:01 125/70 01/18/23 07:00 99.1 F 72 18 91 01/18/23 06:45 99.3 F 74 18 87 L 01/18/23 08:00 01/18/23 08:00 75 O2 Flow Rate FiO2 01/18/23 18:04 01/18/23 18:04 01/18/23 18:00 01/18/23 17:00 01/18/23 16:00 01/18/23 15:04 01/18/23 15:04 01/18/23 15:02 01/18/23 14:00 01/18/23 13:00 01/18/23 12:00 01/18/23 15:17 2 01/18/23 15:05 01/18/23 11:17 2 01/18/23 11:00 01/18/23 10:23 01/18/23 10:23 01/18/23 10:01 01/18/23 10:01 01/18/23 10:00 01/18/23 11:04 01/18/23 09:01 01/18/23 09:01 01/18/23 09:00 01/18/23 07:11 40 01/18/23 08:01 01/18/23 08:01 01/18/23 08:00 01/18/23 07:01 01/18/23 07:01 01/18/23 07:00 01/18/23 06:45 01/18/23 08:00 40 01/18/23 08:00 Laboratory Results Reviewed CBC reviewed PG Care Time/CCT Total # of Minutes Spent Total Time Spent with Patient: Total time spent is greater than 50% in coordination of care (as documented) at patient's floor/unit and/or counseling patient: Coding Level of Care Code 95741 SUB INP/OBS CARE 3/50MIN Diagnoses Acute respiratory failure with hypoxia and hypercapnia J96.01; J96.02 Elevated troponin R77.8 BPH w urinary obs/LUTS N40.1; N13.8 Chronic pain G89.29
[2023-01-18] MEDS: BUPRENORPHINE/NALOXONE 8/2 MG TAB SL SCH (20:28)
[2023-01-18] MEDS: ENOXAPARIN INJ 40 MG/0.4 ML SYR SQ SCH (20:30)
[2023-01-18] MEDS: ROSUVASTATIN CALCIUM 5 MG TAB PO SCH (20:40)
[2023-01-18] MEDS ORDERED: PANTOprazole 40 MG in SYRINGE 0 ML IV SCH (21:00)
[2023-01-18] MEDS ORDERED: CALCIUM CARBONATE 500 MG CHEWABLE TAB PO PRN (23:48)
[2023-01-19 04:59] LABS: Basophils # (auto) 0.02 K/uL (0-0.2); Basophils % (auto) 0.1 %; Hematocrit (blood only) 45.4 % (42.0-52.0); Hemoglobin 14.6 g/dl (14.0-18.0); Immature Granulocytes # (auto) 0.06 K/uL (0.01-0.20); Immature Granulocytes % (auto) 0.3 %; Lymphocytes # (auto) 2.55 K/uL (1.2-3.4); Lymphocytes % (auto) 14.7 %; Mean Corpuscular Hemoglobin 30.5 pg (25.0-34.0); Mean Corpuscular Hgb Conc 32.2 g/dL (32.0-36.0); Mean Platelet Volume 9.6 fL (9.4-12.4); Monocytes # (auto) 1.25 K/uL (0.11-0.59); Monocytes % (auto) 7.2 %; Neutrophils # (auto) 13.45 K/uL (1.40-6.50); Neutrophils % (auto) 77.7 %; Platelet Count 233 K/uL (130-400); RDW Coefficient of Variation 12.7 % (11.5-14.5); RDW Standard Deviation 44.6 fL (36.4-46.3); Red Blood Count 4.78 M/uL (4.70-6.10); White Blood Count 17.33 K/ul (4.8-10.8)
[2023-01-19 05:01] LABS: BUN Creatinine Ratio 29.2 (10-20); Calcium 8.8 mg/dl (8.6-10.3); Creatinine Clr Calc Pharmacy 103.6 ml/min; Est GFR (African American) 113.9 ml/min; Est GFR (Non-African American) 98.3 ml/min; Magnesium 2.5 mg/dl (1.7-2.4); Phosphorus 3.8 mg/dl (2.5-4.9)
[2023-01-19] MEDS: ICU ELECTROLYTE REPLACEMENT PROTOCOL SCH (05:11)
[2023-01-19] MEDS: CEROVITE ADV FORMULA TAB PO SCH (07:40)
[2023-01-19] MEDS: SENNA 8.6 MG TAB PO SCH (07:40)
[2023-01-19] MEDS: THIAMINE HCL 100 MG TAB PO SCH (07:41)
[2023-01-19] MEDS: INSULIN ASPART PER UNIT CHARGE SC SCH ×2 (07:42→12:12)
[2023-01-19] MEDS: ASPIRIN 81 MG CHEW PO SCH (07:44)
[2023-01-19] MEDS: BUPRENORPHINE/NALOXONE 8/2 MG TAB SL SCH (07:44)
[2023-01-19] MEDS: ALBUT/IPRATROP 3MG/0.5MG NEB 3 ML VIAL NEB SCH ×3 (07:58→15:17)
[2023-01-19] MEDS ORDERED: cefTRIAXone SODIUM 2,000 MG in DEXTROSE 5% 50 ML IV SCH (08:30)
--- NOTE | 2023-01-19 08:35 | XRay Report ---
XR chest 1V portable HISTORY: 53 years-old Male eval for pneumonia acute shortness of breath COMPARISON: 01/17/2023 TECHNIQUE: AP view of the chest FINDINGS: Cardiac silhouette is enlarged. Trace pleural effusions with mild bibasilar consolidation. Pulmonary vascular congestion. Status post extubation. No pneumothorax or overt pulmonary edema. Incomplete bon y fusion involves several thoracic vertebral body posterior elements. Chronic deformities of the shou lders and clavicles. IMPRESSION: 1. Status post extubation. 2. Cardiomegaly with pulmonary vascular congestion. 3. Trace pleural effusions with persistent mild bibasilar opacities. ACT 112: Negative or not required by law. The above report was generated using voice recognition software. It may contain grammatical, syntax o r spelling errors. Electronically signed by: Aldair Hirsch M.D. 01/19/2023 8:33 AM
[2023-01-19] MEDS ORDERED: predniSONE 20 MG TAB PO SCH (09:00)
[2023-01-19] MEDS ORDERED: AZITHROMYCIN 500 MG in DEXTROSE 5% 250 ML IV SCH (09:00)
[2023-01-19] MEDS ORDERED: FUROSEMIDE 20 MG TAB PO SCH (09:00)
--- NOTE | 2023-01-19 09:28 | Critical Care Progress Note ---
Date of Service January 19, 2023 Assessment & Plan (1) Hypercapnic respiratory failure: (2) CHF (congestive heart failure): (3) Elevated troponin: (4) Lower back pain: (5) Required emergency intubation: (6) Current smoker: Plan Reason Critically Ill: 53 YOM admitted for hypercarbic respiratory failure, that failed BiPAP and required intubation and mechanical ventilation, extubated 01/18/2023. Neuro 1. Chronic Lumbar Back Pain - On Suboxone at home per family for years- will continue - Continue home psych meds, thiamine, multivitamin Cardiac 1. RBB 2. HTN 3. HFpEF - lasix po 20 mg daily Respiratory 1. Hypercarbic respiratory failure 2. current smoker 3. CYRUS/ [facility] 4. Probable COPD - Prednisone taper for 3 more days - Continue bronchodilators - Recommend bipap 28/01 for sleep, based on blood gases, likely will qualify for home bipap but PAP tolerance / compliance has been a barrier. Nasal mask vs. dental device are options for him. Do to potential compliance issues, not a candidate for hypoglossal nerve stimulator GI -- bowel regimen RENAL -- Jenelle d/c'ed ENDO - NO acute needs - ICU hyperglycemic protocol HEME - NO acute needs ID - No acute needs at this time - De-escalate abx DVT PROPHYLAXIS - SCDs, Lovenox Family: Updated Daughter Liliya [phone] Admission and Anticipated Discharge Date Admission Date: January 16, 2023 Subjective 01/19/2023. Extubated yesterday. Doing well this am. On room air. Did not tolerate full face mask bipap overnight. Review of Systems Review of Systems: Denies chest pain, dyspnea, syncope, anxiety Physical Exam Physical Exam: GEN: A/O x 3, NAD CV: RRR Resp: CTAB Ext: Warm, dry Skin: no rashes Results & Data Results & Data Vital Signs (Past 12 Hours) Vital Signs Pulse Pulse Resp BP Pulse Ox O2 Del Method O2 Flow Rate 01/19/23 08:34 125/79 01/19/23 08:00 66 99 01/19/23 07:34 72 20 92 01/19/23 07:34 125/79 01/19/23 07:00 76 21 82 L 01/19/23 06:45 78 18 90 01/19/23 08:13 Nasal Cannula 2 01/19/23 08:00 82 08/06/23 07:58 63 18 94 Nasal Cannula 2 01/19/23 06:00 82 17 98 01/19/23 05:00 76 18 95 01/19/23 04:30 74 14 98 01/19/23 04:30 124/55 L 01/19/23 04:00 74 15 95 01/19/23 03:00 75 18 89 L 01/19/23 02:00 76 17 96 01/19/23 01:00 80 20 85 L 01/19/23 00:00 78 17 91 01/18/23 23:21 151/82 H 01/18/23 23:21 81 15 96 01/18/23 23:00 76 17 93 01/18/23 22:00 87 20 93 01/18/23 23:00 72 Coding Level of Care Code 21036 CRITICAL CARE 1ST 30-74M Diagnoses Hypercapnic respiratory failure J96.92 CHF (congestive heart failure) I50.9 Heart failure chronicity: acute Heart failure type: unspecified Elevated troponin R77.8 Lower back pain M54.50 Required emergency intubation Z98.890 Current smoker F17.200 Time Spent (min) 30 (2) CHF (congestive heart failure) Heart failure chronicity: acute Heart failure type: unspecified Qualified Code(s): I50.9 - Heart failure, unspecified
--- NOTE | 2023-01-19 16:03 | Discharge Summary ---
Date of Service January 19, 2023 Admission HPI Per Admitting Provider The patient is a 53-year-old male with a past medical history including insomnia, cleft lip and palate, hyperlipidemia, hyperglycemia, urinary incontinence, chronic pain syndrome, BPH with LUTS and ED. The patient presents to the work emergency department with worsening generalized edema as noted above. While in the emergency department, the patient became more lethargic and ABG at that time showed significant respiratory acidosis for which she was initially placed on BiPAP, and admitted to stepdown unit with plans for follow- up ABG in 1 hour. Patient continued be more lethargic, ABG at that time showed worsening acute respiratory acidosis, and patient was then transferred to the ICU, and intubated for further treatment. Principal Diagnosis left AMA acute respiratory failure with hypercarbia and hypoxia cleft pallate sleep apnea pneumonia left AMA Discharge Exam lungs are diminished at the bases pt is awake and alert pt voices understanding of risk of leaving ama Discharge Data Allergies Allergy/AdvReac Type Severity Reaction Status Date / Time moxifloxacin Allergy Intermediate RASH Verified 01/16/23 18:23 Penicillins Allergy Unknown CAN'T Verified 01/16/23 18:23 REMEMBER Consultations 01/16/23 19:44 ED Decision to Admit Stat 01/17/23 02:22 Consult Clamper Routine Ordered Studies 01/16/23 17:30 US venous doppler LE BI Stat 01/17/23 00:09 CT angio chest PE protocol Stat Hospital Course (1) Left against medical advice: Patient left AMA understands risks of dying and worsening respiratory failure family is aware of these risk also is a phone his daughter and she is come to pick him up prescription sent to [facility] (2) Acute respiratory failure with hypoxia and hypercapnia: Acute respiratory failure with hypoxia and hypercapnia/required emergent intubation/CHF exacerbation/pneumonia- History of smoking, does have alkalosis when CO2 correctred, suggests some COPD baseline Also evidence of tox + so cannot rule out respiratory depression from toxic encephalopahty Successful extubation on 01/18/2023 CTA chest shows no PE but subtle atelectasis vs infiltrate at based, cannot rule out aspiration pneumonia negative procalcitonin patient de-escalated off antibiotics by pulmonary critical care profound hypophosphatemia and magnesemia replete (3) Elevated troponin: Pt with elevated troponin and cannot rule out HF unknown type, last echo in 2019 shows preserved EF trend troponin does not show elevation suspect demand ischemia Echo normal EF no regional wall motion abnormalities dilated RV with normal estimated right ventricular pressure similar to previous study of 2020 (4) BPH w urinary obs/LUTS: chronic unknown no complaints at present (5) Chronic pain: patient typically on Suboxone for chronic pain this is currently held Total Time Total Time Spent Total Time Spent (In Minutes): It required greater than 30 minutes to prepare this patient for discharge Discharge Plan Discharge Items Patient Disposition: Against Medical Advice Reason For Visit: ACUTE RESP FAILURE W HYPOXIA & HYPERCAPNEA, CHF, P Condition on Discharge: Serious Activity: Resume your previous activity Non-emergency contact: Primary Care Provider and Stream Control Officer Follow-up/Referrals: Jose Bukr III, ROSE MARIE [Primary Care Provider] - Pending Studies at Discharge: Yes Stand-Alone Forms: Eversight, Smoking Cessation Medications and DC Order Prescriptions: New doxycycline hyclate 100 mg capsule 100 mg PO BID 10 Days Qty: 20 0RF prednisone 10 mg tablet 10 mg PO DIRECTED Qty: 40 0RF Rx Instructions: 4 a day x 4 d>3 a day x 4 d>2 a day x 4 d>1 a day Continued gabapentin 300 mg capsule 300 mg PO HS Qty: 30 5RF rosuvastatin 5 mg tablet 5 mg PO HS Qty: 90 1RF buprenorphine-naloxone [Suboxone] 8-2 mg film 1 film sublingual BID acetaminophen [Tylenol Extra Strength] 500 mg Tablet 500 - 1,000 mg PO DIRECTED PRN (Reason: Pain) albuterol sulfate [Ventolin HFA] 90 mcg/actuation HFA aerosol inhaler 1 - 2 puff inhalation UD PRN (Reason: shortness of breath or wheezing) Qty: 6.7 0RF Rx Instructions: 1-2 INH 4-6 PRN; Discharge Orders: Left Against Medical Advice (Routine); Ordered 01/19/23 Ordered By: Nacho Amado Admission Data Admit Date/Time: 01/16/23 20:29 Attending Provider: Nacho Amado Admit Provider: Chato Delarosa Primary Care Provider: Jose Burk III Other Providers: Chato Delarosa ; John Lara Coding Level of Care Code 93835 INP/OBS DISCH >30 MIN Diagnoses Left against medical advice Z53.29 Acute respiratory failure with hypoxia and hypercapnia J96.01; J96.02 Elevated troponin R77.8 BPH w urinary obs/LUTS N40.1; N13.8 Chronic pain G89.29
== END 2023-01-19 16:46 | disposition left against medical advice (07) | DRG 208 ==
LOC: ED 16:36 → 2S 20:29 → SUATTDRO 20:29 → 2S 21:24 → 1E 22:46